=== PATIENT | female | born 1940 | race Caucasian/White ===

== ENCOUNTER 2018-11-28 05:53 | Inpatient (IN) | payer MEDICARE, SELFPAY ==
[2018-11-22 12:18] VITALS: BMI 31.2
[2018-11-28] VITALS (39 sets, daily range): BP systolic 69–167; BP diastolic 31–85; PULSE 67–92; RESP 14–20; TEMP 35.7–36.6; O2SAT 91–100; BMI 31.2
--- NOTE | 2018-11-28 | DI.RAD.S_ITS ---
PROCEDURE: XR HIP W PEL IF DONE LT 2V INDICATIONS: POST OP LEFT TOTAL HIP TECHNIQUE: AP pelvis and lateral view of the left hip acquired. COMPARISON: None. FINDINGS: Bones: Patient is status post left total hip arthroplasty, with hardware components in expected positions. The hip joint appears congruent. The visualized bony structures appear intact. Soft tissues: Overlying postoperative changes are noted. No suspicious soft tissue densities. IMPRESSION: Normal alignment after left total hip arthroplasty with a surgical drain overlying the operative bed. Dictated by: Jude Fernandez M.D. on 11/28/2018 at 14:36 Approved by: Jude Fernandez M.D. on 11/28/2018 at 14:37
--- NOTE | 2018-11-28 06:33 | DI.RAD.S_ITS ---
PROCEDURE: XR PELVIS 1-2V INDICATIONS: post op TECHNIQUE: Intra-operative view of the pelvis and hip acquired. COMPARISON: None. FINDINGS: Bones: Intraoperative devices prior to placement of arthroplasty prostheses are in expected positions. No fractures or suspicious bony lesions. Soft tissues: Overlying surgical retractors are present, along with other intraoperative changes. IMPRESSION: Expected appearance of intraoperative components for left total hip arthroplasty are present, prior to placement of final components. Normal alignment established. Dictated by: Jude Fernandez M.D. on 11/28/2018 at 11:02 Approved by: Jude Fernandez M.D. on 11/28/2018 at 11:02
[2018-11-28] MEDS: CELECOXIB 200 MG CAPSULE PO (06:58)
[2018-11-28] MEDS: PREGABALIN 75 MG CAPSULE PO (06:58)
[2018-11-28] MEDS: ACETAMINOPHEN 325 MG TABLET 975 MG PO ×2 (06:58→21:32)
[2018-11-28] MEDS: LACTATED RINGERS 1,000 ML 42 ML IV ×2 (07:00→11:57)
[2018-11-28] MEDS: VANCOMYCIN 1,000 MG/200 ML PIGGYBACK 200 MG IV (07:04)
--- NOTE | 2018-11-28 07:27 | PM.PREOP ---
Pre-operative Note Interval Note History & Physical reviewed/Exam performed by Physician: Yes Changes to H&P: No
--- NOTE | 2018-11-28 07:37 | P.OP_ITS ---
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 She was treated elsewhere with open reduction internal fixation. 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 Surgeon: Catarina Mccullough Horologist Apprentice: Katherin Gipson Anesthesia Type: General and Spinal Operative Notes Findings: Left femoral neck nonunion, soft bone, defect in the acetabulum, adequate stability evangelical of leg length and offset Closure Type: primary Specimen(s): none sent Prosthetic devices, grafts, tissues, transplants, or devices: Size 10 cemented Synergy femoral component Mccullough [employer] Nephew, 48 mm acetabulum, 48 neutral 32 liner, 32+ 4 femoral head cobalt chrome Applied: drain(s) Estimated Blood Loss (mL): 300 Blood products transfused: none Procedure in detail: The patient was seen in the pre-operative area, where the patient identified the left hip as the operative site and this was marked with my initials. The patient received pre-operative antibiotics and was taken to the operating room and placed on the operative table in the right lateral decubitus position after satisfactory anesthesia. A multimedia authoring specialist out was performed. The left leg was prepared from the ankle to the iliac crest with ChloroPrep in the usual fashion and draped through sterile drapes. The hip was approached through an approximately 20 cm incision centered over the greater trochanter and curving gently posteriorly as it went proximally. This was carried sharply to the fascia jame, which was divided and retracted with a self retaining retractor. The trochanteric bursa was excised with care being taken to avoid the sciatic nerve, which was identified and protected throughout the case. The short external rotators were incised and the capsulomuscular flap was raised and tagged for later repair. The hip was dislocated. Next the patient's previous screws were carefully found I incised the region of the tensor fascia jame over the screw heads dissected down and removed the screw heads without difficulty. Subsequently bone was harvested from the residual femoral neck and the trochanteric region and then packed into the screw holes. The hip was redislocated and the femoral head was removed. There was a nonunion of the fracture site the head was removed without difficulty and then I used a saw to perform an osteotomy along the residual femoral neck. The bone was saved for ultimate bone grafting. Retractors were placed around the femur. The canal was opened with a box cutting osteotome, followed by a T handled reamer and a lateralizing reamer. The canal finer was used. Next the canal was reamed up to a size 10, followed by sequential broaching until there was good stability of the broach in the femur. Retractors were placed to expose the acetabulum. There was an articular cartilage defect in the superior aspect of the acetabulum which was significant. The labrum and central soft tissues were removed. Reaming was performed initially going up in 2 mm increments, then 1 mm increments until good bite was obtained with an odd sized reamer. The cup 1 mm larger than the last reamer was then inserted using the appropriate anteversion guides. A trial neutral liner was placed. The broach was placed in the canal. A trial head and neck were then placed and the hip relocated and checked for leg length and stability. An intraoperative film confirmed the component position and no evidence of fracture. The patient was stable in the position of sleep, of squatting, and could be put through a range of motion with 45 degrees internal rotation without dislocation. At 90 degrees flexion, internal rotation to 70 was possible before dislocation. This was felt to be satisfactory and the appropriate components were opened, and the trials were removed. The acetabular liner was impacted into position. The canal was meticulously irrigated with pulse lavage. A distal cement restrictor was placed. The holes in the lateral femoral cortex were filled with bone graft as was a small portion of bony defect along the posterior medial neck. Cement was carefully mixed and pressurized into the canal. The final stem was then impacted into the prepared femoral canal. The cement was allowed to harden and was meticulously cleaned from the soft tissues. A brief Betadine soak was performed while trialing with head options. The hip was meticulously irrigated with normal saline. Finally the femoral head was impacted onto the stem. The acetabulum was cleared of all material and the hip relocated one final time. The capsulomuscular flap was then repaired to the greater trochanter though an awl hole using the tag sutures. The short external rotators were repaired with a nonabsorbable suture. The fascia over the vastus lateralis was carefully closed with interrupted Vicryl. A deep drain was placed and brought out anteriorly. The fascia jame was closed with Vicryl. The subcutaneous layer was closed with barbed sutures and SteriStrips. An Aquacel Ag dressing was applied and the patient was taken to recovery having tolerated the procedure well. Complications: none Condition: stable Disposition: Acute Care Plan for aftercare: The patient will be maintained on a standard total hip replacement protocol with weight bearing as tolerated and posterior hip precautions. The patient will receive Aspirin and sequential compression devices for DVT prophylaxis. The patient will be discharged home when safe for the home environment.
[2018-11-28] MEDS: CEFAZOLIN 2 GM/100 ML FROZ.PIGGY IV ×2 (08:02→17:00)
--- NOTE | 2018-11-28 08:51 | SUR.OPER ---
Lateral on padded OR bed. Gel axillary roll. Arms secured on padded armboard with pillow supporting top arm. Padded hip positioner braces x4 - anterior and posterior chest and pelvis. Additional gel pad used anterior pelvis. Gel pad under bottom leg from knee to foot and secured with tape over sheet.
[2018-11-28] MEDS: BUPIVACAINE 0.25% W/ EPI 30 ML VIAL 60 ML INJ (09:08)
[2018-11-28] MEDS: SODIUM CHLORIDE IRRIG SOLUTION 250 ML, EPINEPHrine 1 MG IRR (09:09)
[2018-11-28] MEDS: BUPIVACAINE LIPOSOME 266 MG/20 ML VIAL INJ (09:10)
[2018-11-28] MEDS: TRANEXAMIC ACID 1,000 MG VIAL 1000 MG INJ (09:14)
[2018-11-28] MEDS: LACTATED RINGERS 1,000 ML 125 ML IV (12:45)
--- NOTE | 2018-11-28 12:48 | PM.PN.1 ---
Exam Vital Signs (past 8 hours): - 11/28/18 07:06 11/28/18 11:18 11/28/18 11:22 Temperature 97.7 F 97.8 F Pulse Rate 88 76 87 Respiratory Rate 15 16 20 Blood Pressure 167/85 H 78/44 L 69/33 L Pulse Oximetry 100 94 94 11/28/18 11:25 11/28/18 11:30 11/28/18 11:31 Temperature Pulse Rate 67 80 78 Respiratory Rate 16 18 16 Blood Pressure 137/77 142/72 H 104/56 L Pulse Oximetry 94 94 94 11/28/18 11:36 11/28/18 11:41 11/28/18 11:50 Temperature Pulse Rate 83 82 78 Respiratory Rate 16 16 18 Blood Pressure 104/46 L 91/44 L 100/76 Pulse Oximetry 93 91 94 11/28/18 11:56 11/28/18 12:11 11/28/18 12:16 Temperature 97.2 F L Pulse Rate 75 77 76 Respiratory Rate 16 20 14 Blood Pressure 88/40 L 90/45 L 94/44 L Pulse Oximetry 92 95 95 11/28/18 12:20 11/28/18 12:35 Temperature 97.8 F Pulse Rate 76 82 Respiratory Rate 16 14 Blood Pressure 90/44 L 87/47 L Pulse Oximetry 94 93 Oxygen Delivery Method Nasal Cannula Oxygen Flow Rate 2
[2018-11-28] MEDS: SODIUM CHLORIDE 0.9% 1,000 ML 1000 ML IV ×2 (13:10→16:30)
--- NOTE | 2018-11-28 13:19 | PM.CN ---
History of Present Illness Date Patient Seen: 11/28/18 Time Patient Seen: 13:19 Chief complaint: [id number] LEFT TOTAL HIP ARTHROPLASTY Reason for consult: co-management of pulmonary condition Requesting provider: Catarina Mccullough Narrative: 77-year-old female with past medical history of asthma/COPD overlap syndrome with chronic hypoxia on 2 L oxygen therapy at home, ALIREZA on CPAP, hypertension, breast cancer status post radiation, GERD, mild pulmonary hypertension was admitted by Dr. Mccullough, orthopedics, status post left hip replacement. Patient states she has fallen in April 2018 and has broken her femur. She was treated with open reduction internal fixation of her left femur however developed a nonunion and therefore required a total hip arthroplasty today. I have seen patient postoperatively. She is currently feeling well. AO x3. She currently denies any symptoms of fevers, chills, blurry vision, lightheadedness, dizziness, weakness, sore throat, shortness of breath, cough, chest pain, nausea, vomiting, abdominal pain, diarrhea, constipation, symptoms. She is lying comfortably in bed without any acute pain. Postop vitals in the room: Temp 96.8? F, blood pressure 80/46, pulse 83, respiratory rate 16, saturation 96% on 2 L nasal cannula. [facility] Medical History (Updated 11/28/18 @ 13:25 by Guerita Farooq MD) Asthma (Acute) Breast cancer, left (Acute ~2014) Bronchitis (Acute) COPD (chronic obstructive pulmonary disease) (Acute) Easy bruisability (Acute) Former smoker (Acute) GERD (gastroesophageal reflux disease) (Acute) H/O: hysterectomy (Acute) HTN (hypertension) (Acute) Hearing impaired (Acute) Hypoxia (Acute) Left atrial dilatation (Acute) Loss of teeth due to extraction (Acute ~2016) Mild pulmonary hypertension (Acute) Sciatica (Acute) Sleep apnea (Acute) Asthma-COPD overlap syndrome (Chronic) Hip fracture (Chronic ~04/2018) Surgical History (Updated 11/22/18 @ 13:19 by Ysey Loza RN) History of arthroplasty of right knee (Acute ~10/2017) Hx of cholecystectomy (Acute) Status post bilateral cataract extraction (Acute) Family History (Updated 11/28/18 @ 13:26 by Guerita Farooq MD) Father Diabetes mellitus Mother CVA (cerebral vascular accident) Brother Cancer Social History (Updated 11/28/18 @ 13:27 by Guerita Farooq MD) household members: spouse lives independently: Yes Smoking Status: Former smoker alcohol intake: current substance use type: does not use Family History (Updated 11/28/18 @ 13:26 by Guerita Farooq MD) Father Diabetes mellitus Mother CVA (cerebral vascular accident) Brother Cancer Social History (Updated 11/28/18 @ 13:27 by Guerita Farooq MD) household members: spouse lives independently: Yes Smoking Status: Former smoker alcohol intake: current substance use type: does not use Meds Home Medications Medication Instructions Recorded Confirmed Type albuterol sulfate 1 - 2 puff INHALATION Q4-6H PRN 11/22/18 11/28/18 History fluticasone furoate-vilanterol 1 inh INHALATION DAILY 11/22/18 11/28/18 History [Breo Ellipta] indapamide 2.5 mg PO QAM 11/22/18 11/28/18 History lisinopril 20 mg PO QAM 11/22/18 11/28/18 History naproxen sodium [Aleve] 1 - 2 tab PO BID PRN 11/22/18 11/28/18 History omeprazole 80 mg PO QAM 11/22/18 11/28/18 History potassium chloride 8 meq PO Q OTHER DAY 11/22/18 11/28/18 History sertraline 50 mg PO DAILY 11/22/18 11/28/18 History Allergies Allergy/AdvReac Type Severity Reaction Status Date / Time Iodinated Contrast- Oral and Allergy Severe I felt Verified 11/28/18 06:59 IV Dye like I was going to pass out Review of Systems Review of Systems All systems reviewed & are unremarkable except as noted in HPI and below Exam Vital Signs (past 8 hours): - 11/28/18 07:06 11/28/18 11:18 11/28/18 11:22 Temperature 97.7 F 97.8 F Pulse Rate 88 76 87 Respiratory Rate 15 16 20 Blood Pressure 167/85 H 78/44 L 69/33 L Pulse Oximetry 100 94 94 11/28/18 11:25 11/28/18 11:30 11/28/18 11:31 Temperature Pulse Rate 67 80 78 Respiratory Rate 16 18 16 Blood Pressure 137/77 142/72 H 104/56 L Pulse Oximetry 94 94 94 11/28/18 11:36 11/28/18 11:41 11/28/18 11:50 Temperature Pulse Rate 83 82 78 Respiratory Rate 16 16 18 Blood Pressure 104/46 L 91/44 L 100/76 Pulse Oximetry 93 91 94 11/28/18 11:56 11/28/18 12:11 11/28/18 12:16 Temperature 97.2 F L Pulse Rate 75 77 76 Respiratory Rate 16 20 14 Blood Pressure 88/40 L 90/45 L 94/44 L Pulse Oximetry 92 95 95 11/28/18 12:20 11/28/18 12:35 Temperature 97.8 F Pulse Rate 76 82 Respiratory Rate 16 14 Blood Pressure 90/44 L 87/47 L Pulse Oximetry 94 93 Oxygen Delivery Method Nasal Cannula Oxygen Flow Rate 2 Narrative Exam Narrative: General: No acute distress, A/O x3 HEENT: PERRLA and EOMI bilaterally. Normocephalic, atraumatic. Moist mucous membranes. Nasal cannula in place. Neck: Supple, no LAD or JVD CV: Regular rate rhythm, no murmurs Respiratory: Clear to auscultation bilaterally without any wheezing, crackles, or rhonchi GI: Positive bowel sounds in all quadrants, nondistended, non tender. No organomegaly Musculoskeletal: Able to move all extremities Extremities: Left hip dressings in place. No edema. 2+ pulses in all extremities Skin: warm to touch Neuro: No focal deficits Psych: Appropriate mood and behavior Assessment & Plan Assessment & Plan narrative: 77-year-old female with past medical history of asthma/COPD overlap syndrome with chronic hypoxia on 2 L oxygen therapy at home, ALIREZA on CPAP, hypertension, breast cancer status post radiation, GERD, mild pulmonary hypertension was admitted by Dr. Mccullough, orthopedics, status post left hip replacement. Services were consulted for comanagement of patient's pulmonary condition. 1. Left hip fracture, chronic, present on admission -status post left hip arthroplasty -management as per primary team -Tylenol as needed for pain, aspirin 81 mg p.o. b.i.d. and SCD boots for DVT prophylaxis 2. Hypotension, acute -likely due to anesthesia effect however would like to rule out infectious source -blood pressure status post procedure 79/40-> 80/46 -will give patient 1 L NS bolus and monitor in telemetry. May need to start on maintenance IV fluid to maintain the blood pressure -ordered CBC, CMP, lactate, EKG-will follow up -hold home medication regimen indapamide and lisinopril 3. Asthma/COPD overlap syndrome -patient currently is not in exacerbation -no evidence of wheezing on physical exam -as per Pulmonary recommendations, will continue patient's home medication inhaler regimen with Symbicort and albuterol -duo nebs q.4 hours as needed for wheezing with consult to respiratory therapy -incentive spirometry -continue home regimen O2 therapy 2 L nasal cannula 4. Obstructive sleep apnea, chronic, present on admission -resume CPAP therapy 5. Mild pulmonary hypertension chronic, present on admission -likely due to ALIREZA and COPD/asthma overlap -continue to manage the above 6. History of breast cancer, present on admission, an active -status post radiation 7. GERD, chronic, present on admission -continue home regimen omeprazole therapy Dispo: Patient is here s/p L hip replacement. Doing well with exception of hypotension. Recussitating with IVF and ruling out infection. FULL CODE DVT PPx with SCD boots
--- NOTE | 2018-11-28 13:56 | PT.IPTN ---
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) Surgery Performed Operation Date: 11/28/18 07:45 Actual Procedures p Total Hip Arthroplasty Revision(Left) - Catarina Mccullough MD Physical Therapy Treatment Note Notes Pt with BP of 83/52 in supine, not ready to mobilize. Will check back.
[2018-11-28 14:18] LABS: Add Manual Diff / Slide Review NO; Basophils Absolute Auto 0 /uL (0-100); Basophils Percent Auto 0.2 % (0-2); Eosinophils Absolute Auto 0 /uL (0-450); Eosinophils Percent Auto 0.1 % (2-4); Hematocrit 36.6 % (36-46); Lymphocytes Absolute Auto 500 /uL (1100-4500); Lymphocytes Percent Auto 3.5 % (25-40); Mean Corpuscular HGB Conc 32.9 % (30-36); Mean Corpuscular Hemoglobin 26.8 PG (26-34); Mean Corpuscular Volume 81.6 fL (80-100); Monocytes Absolute Auto 200 /uL (0-900); Neutrophils Absolute Auto 13900 /uL (1500-7000); Neutrophils Percent Auto 95.2 % (50-75); Platelet Count 190 X10^3/uL (150-400); Red Blood Cell Count 4.48 X10^6/uL (4.0-5.2); Red Cell Distribution Width 14.6 % (11.6-14.8); White Blood Cell Count 14.7 X10^3/uL (4.5-11.0)
[2018-11-28 14:33] LABS: Lactate (Lactic Acid) 1.4 mmol/L (0.7-2.1)
--- NOTE | 2018-11-28 14:34 | PM.CHAP ---
chaplain hernández. Stopped to visit. Patient had just returned from surgery and had family with her.
[2018-11-28 14:35] LABS: Alanine Aminotransferase 28 IU/L (9-52); Albumin 3.5 g/dL (3.5-5.0); Albumin Globulin Ratio 1.3 (1.0-2.8); Alkaline Phosphatase 69 U/L (38-126); Aspartate Aminotransferase 30 IU/L (14-36); Bilirubin Total 0.4 mg/dL (0.2-1.3); Blood Urea Nitrogen 25 mg/dL (7-17); Calcium 9.2 mg/dL (8.4-10.2); Carbon Dioxide 29 mmol/L (22-32); Chloride 101 mmol/L (98-107); Estimated Glomerular Filt Rate 53.8 mL/min (>60); Globulin 2.6 g/dL (1.7-4.1); Glucose 126 mg/dL (80-110); HEMOLYSIS 23 (0-50); Potassium 4.2 mmol/L (3.4-5.1); Sodium 137 mmol/L (137-145); Total Protein 6.1 g/dL (6.3-8.2)
--- NOTE | 2018-11-28 14:38 | PC.NURSE ---
Day Shift Pt arrived from PACU, BP was in 80's/40's. Inspected pt and she had small BP cuff in place that was not correctly sized, changed to regular BP cuff, BP down to 73/43. Spoke with anesthesiologist and he did want to order anything additional. Dr Farooq was doing assessment and she ordered 1L NS bolus. This was started, BP maintained in 80's, around 1430, BP increased to 90's. Pt asymptomatic, laying flat in bed. Has full sensation of her legs. Bladder scan was 242 ml. will continue to monitor.
[2018-11-28] MEDS: SODIUM CHLORIDE 0.9% 1,000 ML 100 ML IV (19:00)
[2018-11-28] MEDS: SODIUM CHLORIDE 0.9% 500 ML 1000 ML IV (20:51)
[2018-11-28] MEDS: ASPIRIN EC 81 MG TABLET PO (21:33)
[2018-11-28] MEDS: DOCUSATE 100 MG CAPSULE PO (21:33)
--- NOTE | 2018-11-28 21:55 | PM.EVENT ---
Date Patient Seen: 11/28/18 Time Patient Seen: 19:38 Advised at signout that we had been asked to consult on this patient for hypotension. She was initially started on NS at 200 ml/hour. Half hour bp check with no improvement. Patient is alert, oriented and denies feeling light headed. Checked bp again at half hour, sat patient up to 30 degrees, with slight improvement to 82/56. Then she was bolused with NS 500 ml wide open with no improvement. Discussed w/Dr. Farooq and was decided to transfer her to the ICU and place on a norepinephrine drip. Contacted ED for guidance on placing a central line, referred to anesthesia, they referred me to the surgeon. Contacted Dr. Villarreal who graciously agreed to come to the hospital to place a central line. Patient's wound is intact and dry. Hemovac was drained of 15 cc during the past shift. I have ordered a stat CBC to check if she may be having occult blood loss.
--- NOTE | 2018-11-28 21:58 | PC.NURSE ---
Evening Shift Note Pt experiencing continual hypotension w/ SBP from 70's 90's, MAPs between 57-73, pt asymptomatic expressing feeling very tired and sleepy. Pt given several boluses per hospitalist 2L by day shift nurse (one is not documented in AUG) shift and 1.5L in evening shift per AUG. Pt w/ improved SBP of 90's during bolus infusion. This RN suggested administration of Narcan per anesthesia order to possibly reverse potential anesthesia side effects. Hospitalist unsure of potential pain exacerbation. In between NS boluses pt received maintenance NS at 200ml/hr. SBP continued to fluctuate 70-80s and MAP less than 65, blood pressure taken every 30min. At this time the hospitalist Daniel decided to transfer pt to ICU.
[2018-11-28 22:20] LABS: Add Manual Diff / Slide Review NO; Basophils Absolute Auto 0 /uL (0-100); Basophils Percent Auto 0.1 % (0-2); Eosinophils Absolute Auto 0 /uL (0-450); Hematocrit 33.8 % (36-46); Hemoglobin 11.1 g/dL (12.0-16.0); Lymphocytes Absolute Auto 700 /uL (1100-4500); Lymphocytes Percent Auto 4.9 % (25-40); Mean Corpuscular HGB Conc 32.9 % (30-36); Mean Corpuscular Hemoglobin 27.1 PG (26-34); Mean Corpuscular Volume 82.3 fL (80-100); Monocytes Absolute Auto 800 /uL (0-900); Monocytes Percent Auto 5.4 % (3-14); Neutrophils Absolute Auto 13000 /uL (1500-7000); Neutrophils Percent Auto 89.6 % (50-75); Platelet Count 204 X10^3/uL (150-400); Red Blood Cell Count 4.11 X10^6/uL (4.0-5.2); Red Cell Distribution Width 14.7 % (11.6-14.8); White Blood Cell Count 14.5 X10^3/uL (4.5-11.0)
--- NOTE | 2018-11-28 22:53 | PM.EVENT ---
Date Patient Seen: 11/28/18 Time Patient Seen: 22:53 Asked to come in for central line placement for persistently hypotensive patient. On review, 77yo F s/p hip revision earlier today, had spinal anesthesia and has been hypotensive to 70-80s SBP since. She is awake, alert, fully oriented, and comfortable. She has no lightheadedness but is a bit tired. On QHS home O2 for COPD, low levels, and has had no hypoxemia today; no systemic steroids per chart. She is breathing comfortably. On home inhalers and a diuretic which she did not take today. CBC shows a mild leukocytosis and left shift, normal platelets, and Hct from 36%->33% since AM; small volume blood in drain. Anesthesia is also seeing pt and gave small volume phenylephrine through PIV and pt responded quite well. We discussed and pt does not need CVC placement at this time but we will remain available should that change. Would consider BMP, Mg, procal, EKG, CXR, UA, and BLE venous duplex to workup source.
[2018-11-28 23:01] LABS: BUN Creatinine Ratio 27.5 (6-22); Blood Urea Nitrogen 22 mg/dL (7-17); Calcium 8.6 mg/dL (8.4-10.2); Carbon Dioxide 25 mmol/L (22-32); Chloride 104 mmol/L (98-107); Estimated Glomerular Filt Rate > 60.0 mL/min (>60); Glucose 123 mg/dL (80-110); HEMOLYSIS 19 (0-50); Magnesium 1.2 mg/dL (1.6-2.3); Potassium 4.6 mmol/L (3.4-5.1); Sodium 137 mmol/L (137-145)
--- NOTE | 2018-11-28 23:02 | PC.NURSE ---
2240 - Pt to unit from room 209. Pt is alert, oriented and pleasant. Denies pain, denies lightheadedness, denies nausea. Able to move all extremities. ekg monitor demonstrating SR, O2 placed at 2L. Dr. Villarreal, LUCRECIA Sanchez, and Anesthesiologist Dr. Archer at bedside. BP 87/41 with MAP of 58. Dr[address] Archer administered 100mcg of Deejay-synephrine. BP increased to 127/62. Order obtained to initate gtt titrate to a MAP >65. Coordinator notified of need for gtt. Following initial IVP, pt BP trending down. 2253 BP 81/31 (56). NS infusing at 200cc/hr until gtt arrives, then orders to reduce to 100cc/hr.
--- NOTE | 2018-11-28 23:13 | PM.EVENT ---
Date Patient Seen: 11/28/18 Time Patient Seen: 22:[address] Estrada and Dr. Villarreal at the patient's bedside. Dr. Estrada gave the patient phenylepherine IV 100 mcg and the patient's blood pressure mtaty to a systolic of 127, MAP in the 80s. Decision was made to place on a drip starting at 5 mcg/minute and titrate to effect (MAP equal to or greater than 65) in the ICU. Patient appeared to tolerate well. Full labs plus magnesium and calcium were ordered. Her magnesium resulted at 1.2 so I ordered 2 grams IV to replete. Will recheck in the am.
--- NOTE | 2018-11-28 23:20 | P.EN_ITS ---
Date Patient Seen: 11/28/18 Time Patient Seen: 22:[address] Estrada and Dr. Villarreal at the patient's bedside. Dr. Estrada gave the patient phenylepherine IV 100 mcg and the patient's blood pressure matty to a systolic of 127, MAP in the 80s. Decision was made to place on a drip starting at 5 mcg/minute and titrate to effect (MAP equal to or greater than 65) in the ICU. Patient appeared to tolerate well. Full labs plus magnesium and calcium were ordered. Her magnesium resulted at 1.2 so I ordered 2 grams IV to replete. Will recheck in the am.
[2018-11-29] VITALS (35 sets, daily range): BP systolic 79–151; BP diastolic 32–94; PULSE 74–102; RESP 11–96; TEMP 36.6–37.2; O2SAT 84–100
[2018-11-29] MEDS: PHENYLEPHRINE 20,000 MCG in DEXTROSE 5% IN WATER 250 ML 15 ML IV (00:01)
[2018-11-29] MEDS: CEFAZOLIN 2 GM/100 ML FROZ.PIGGY IV (00:05)
[2018-11-29] MEDS: PHENYLEPHRINE 20,000 MCG in DEXTROSE 5% IN WATER 250 ML 18.75 ML IV (01:15)
[2018-11-29] MEDS: MAGNESIUM SULFATE 2 GM/50 ML PIGGYBACK IV (01:30)
[2018-11-29 05:03] LABS: Add Manual Diff / Slide Review NO; Basophils Absolute Auto 0 /uL (0-100); Basophils Percent Auto 0.2 % (0-2); Eosinophils Absolute Auto 100 /uL (0-450); Eosinophils Percent Auto 0.3 % (2-4); Hematocrit 32.9 % (36-46); Hemoglobin 10.7 g/dL (12.0-16.0); Lymphocytes Absolute Auto 1800 /uL (1100-4500); Lymphocytes Percent Auto 9.7 % (25-40); Mean Corpuscular HGB Conc 32.7 % (30-36); Mean Corpuscular Hemoglobin 26.8 PG (26-34); Monocytes Absolute Auto 1600 /uL (0-900); Monocytes Percent Auto 8.5 % (3-14); Neutrophils Absolute Auto 15300 /uL (1500-7000); Neutrophils Percent Auto 81.3 % (50-75); Platelet Count 288 X10^3/uL (150-400); Red Blood Cell Count 4.01 X10^6/uL (4.0-5.2); Red Cell Distribution Width 14.4 % (11.6-14.8); White Blood Cell Count 18.8 X10^3/uL (4.5-11.0)
[2018-11-29 05:08] LABS: BUN Creatinine Ratio 26.3 (6-22); Blood Urea Nitrogen 21 mg/dL (7-17); Calcium 8.4 mg/dL (8.4-10.2); Carbon Dioxide 26 mmol/L (22-32); Chloride 104 mmol/L (98-107); Estimated Glomerular Filt Rate > 60.0 mL/min (>60); Glucose 100 mg/dL (80-110); HEMOLYSIS < 15 (0-50); Potassium 4.1 mmol/L (3.4-5.1); Sodium 135 mmol/L (137-145)
[2018-11-29] MEDS: PANTOPRAZOLE 40 MG TABLET PO (06:36)
[2018-11-29] MEDS: OXYCODONE/ACETAMINOPHEN 5/325 TABLET 1 TAB PO ×2 (06:44→14:58)
--- NOTE | 2018-11-29 06:44 | DI.RAD.S_ITS ---
PROCEDURE: XR CHEST 1V INDICATIONS: Increased White blood cell count, hypotension TECHNIQUE: One view of the chest was acquired. COMPARISON: None. FINDINGS: Surgical changes and devices: None. Lungs and pleura: There is mild bilateral interstitial prominence. No focal infiltrate or consolidation. No pleural effusions or pneumothorax. Mediastinum: Mediastinal contours appear normal. Heart size is normal. Bones and chest wall: No suspicious bony lesions. Overlying soft tissues appear unremarkable. IMPRESSION: Mild bilateral interstitial prominence. No radiographic evidence for pneumonia. Dictated by: Marlon Jasso M.D. on 11/29/2018 at 9:40 Approved by: Marlon Jasso M.D. on 11/29/2018 at 9:41
[2018-11-29 08:00] LABS: RBC Urine None Seen (0-5/HPF)
[2018-11-29 08:01] LABS: Appearance Urine UA CLEAR; Bilirubin Urine UA NEGATIVE (NEGATIVE); Color Urine UA YELLOW; Glucose Urine UA NEGATIVE (Negative); Ketones Urine UA NEGATIVE (NEGATIVE); Leukocyte Esterase Urine UA 1+ (NEGATIVE); Nitrite Urine UA NEGATIVE (Negative); Occult Blood Urine UA NEGATIVE (Negative); Protein Urine UA NEGATIVE (Negative); Urobilinogen Urine UA 0.2 E.U./dL (0.2); pH Urine UA 5.5 (4.5-8.0)
[2018-11-29 08:14] LABS: Procalcitonin < 0.05 ng/mL (<0.5)
[2018-11-29 08:19] LABS: Bacteria Urine Occasional (0-1); Squamous Epithelial Cell Urine 0-1 /HPF (0-5/HPF); WBC Urine 1-5/HPF (0-5/HPF)
[2018-11-29 08:20] LABS: Culture Indicated Urine Specimen Cultured
[2018-11-29] MEDS: SODIUM CHLORIDE 0.9% 1,000 ML 100 ML IV ×2 (08:22→18:28)
[2018-11-29] MEDS: ACETAMINOPHEN 325 MG TABLET 975 MG PO ×2 (09:12→20:23)
[2018-11-29] MEDS: ASPIRIN EC 81 MG TABLET PO ×2 (09:14→20:24)
[2018-11-29] MEDS: SERTRALINE 50 MG TABLET PO (09:17)
[2018-11-29] MEDS: DOCUSATE 100 MG CAPSULE PO ×2 (09:18→20:24)
--- NOTE | 2018-11-29 09:20 | P.PN_ITS ---
Subjective Date Patient Seen: 11/29/18 Time Patient Seen: 09:17 Interval history: Follow-up on hypotension. Patient seen at bedside. She is currently doing well. She had mild left hip pain earlier in the morning and received Percocet with improvement of symptoms. She denies any fevers, chills, nausea, vomiting, diarrhea, constipation, abdominal pain, shortness of breath, chest pain, sore throat, cough, lightheadedness, dizziness. Overnight patient continued to have low blood pressure with map below 65, despite receiving 2.5 L boluses IV fluids. Patient was therefore transferred to ICU. Anesthesia was consulted for possible central line placement, who recommended patient be placed on Deejay-Synephrine drip for better blood pressure control. Patient's blood pressure has improved overnight with phenylephrine drip. Infectious workup including CBC,CMP, lactate, procalcitonin, chest x-ray, UA were all noncontributory with exception of rising WBC (but could be reactive inflammatory process from hip replacement). Patient was also noted to have urinary retention with increasing urine on bladder scans. Orellana catheter was therefore placed. Exam Vital Signs (past 8 hours): - 11/29/18 01:33 11/29/18 01:47 11/29/18 02:08 Temperature Pulse Rate 77 74 Respiratory Rate 13 12 Blood Pressure 89/32 L 91/50 L 92/46 L Pulse Oximetry 97 11/29/18 02:33 11/29/18 02:47 11/29/18 03:32 Temperature Pulse Rate 75 74 Respiratory Rate 11 L 11 L Blood Pressure 80/53 L 80/45 L 102/50 L Pulse Oximetry 95 94 11/29/18 04:10 11/29/18 04:47 11/29/18 05:07 Temperature 97.8 F Pulse Rate 77 77 Respiratory Rate 11 L 19 Blood Pressure 97/38 L 79/45 L 106/59 L Pulse Oximetry 93 100 11/29/18 06:00 11/29/18 07:00 11/29/18 08:00 Temperature 98.3 F Pulse Rate 86 78 84 Respiratory Rate 18 17 24 Blood Pressure 119/56 L 115/56 L 97/52 L Pulse Oximetry 100 100 97 Oxygen Delivery Method CPAP Oxygen Flow Rate 2 Narrative Exam Narrative: General: No acute distress, A/O x3 HEENT: PERRLA and EOMI bilaterally. Normocephalic, atraumatic. Moist mucous membranes. Nasal cannula in place. Neck: Supple, no LAD or JVD CV: Regular rate rhythm, no murmurs Respiratory: Clear to auscultation bilaterally without any wheezing, crackles, or rhonchi GI: Positive bowel sounds in all quadrants, nondistended, non tender. No organomegaly Musculoskeletal: Able to move all extremities Extremities: Left hip dressings in place with drain, draining minimal bloody fluid. No edema. 2+ pulses in all extremities Skin: warm to touch Neuro: No focal deficits Psych: Appropriate mood and behavior Objective Labs Result Diagrams: 11/29/18 04:54 11/29/18 04:54 Labs: Laboratory Results - last 24 hr 11/28/18 11/28/18 11/28/18 13:17 13:17 13:18 WBC 14.7 H RBC 4.48 Hgb 12.0 Hct 36.6 MCV 81.6 MCH 26.8 MCHC 32.9 RDW 14.6 Plt Count 190 Neut % (Auto) 95.2 H Lymph % (Auto) 3.5 L [place] % (Auto) 1.0 L Eos % (Auto) 0.1 L Baso % (Auto) 0.2 Neut # (Auto) 98874 H Lymph # (Auto) 500 L [place] # (Auto) 200 Eos # (Auto) 0 Baso # (Auto) 0 Sodium 137 Potassium 4.2 Chloride 101 Carbon Dioxide 29 BUN 25 H Creatinine 1.00 Estimated GFR 53.8 L BUN/Creatinine Ratio 25.0 H Glucose 126 H Lactate 1.4 Calcium 9.2 Magnesium Total Bilirubin 0.4 AST 30 ALT 28 Alkaline Phosphatase 69 Total Protein 6.1 L Albumin 3.5 Globulin 2.6 Albumin/Globulin Ratio 1.3 Procalcitonin Urine Color Urine Appearance Urine pH Ur Specific [place] Urine Protein Urine Glucose (UA) Urine Ketones Urine Occult Blood Urine Nitrate Urine Bilirubin Urine Urobilinogen Ur Leukocyte Esterase Urine RBC Urine WBC Ur Squamous Epith Cells Urine Bacteria Ur Culture Indicated? Nasal Screen MRSA (PCR) 11/28/18 11/28/18 11/28/18 21:55 22:15 22:15 WBC 14.5 H RBC 4.11 Hgb 11.1 L Hct 33.8 L MCV 82.3 MCH 27.1 MCHC 32.9 RDW 14.7 Plt Count 204 Neut % (Auto) 89.6 H Lymph % (Auto) 4.9 L [place] % (Auto) 5.4 Eos % (Auto) 0.0 L Baso % (Auto) 0.1 Neut # (Auto) 38102 H Lymph # (Auto) 700 L [place] # (Auto) 800 Eos # (Auto) 0 Baso # (Auto) 0 Sodium 137 Potassium 4.6 Chloride 104 Carbon Dioxide 25 BUN 22 H Creatinine 0.80 Estimated GFR > 60.0 BUN/Creatinine Ratio 27.5 H Glucose 123 H Lactate Calcium 8.6 Magnesium 1.2 L Total Bilirubin AST ALT Alkaline Phosphatase Total Protein Albumin Globulin Albumin/Globulin Ratio Procalcitonin Urine Color Urine Appearance Urine pH Ur Specific [place] Urine Protein Urine Glucose (UA) Urine Ketones Urine Occult Blood Urine Nitrate Urine Bilirubin Urine Urobilinogen Ur Leukocyte Esterase Urine RBC Urine WBC Ur Squamous Epith Cells Urine Bacteria Ur Culture Indicated? Nasal Screen MRSA (PCR) Negative for mrsa 11/29/18 11/29/18 11/29/18 04:54 04:54 07:10 WBC 18.8 H RBC 4.01 Hgb 10.7 L Hct 32.9 L MCV 82.0 MCH 26.8 MCHC 32.7 RDW 14.4 Plt Count 288 Neut % (Auto) 81.3 H Lymph % (Auto) 9.7 L [place] % (Auto) 8.5 Eos % (Auto) 0.3 L Baso % (Auto) 0.2 Neut # (Auto) 89714 H Lymph # (Auto) 1800 [place] # (Auto) 1600 H Eos # (Auto) 100 Baso # (Auto) 0 Sodium 135 L Potassium 4.1 Chloride 104 Carbon Dioxide 26 BUN 21 H Creatinine 0.80 Estimated GFR > 60.0 BUN/Creatinine Ratio 26.3 H Glucose 100 Lactate Calcium 8.4 Magnesium Total Bilirubin AST ALT Alkaline Phosphatase Total Protein Albumin Globulin Albumin/Globulin Ratio Procalcitonin Urine Color Yellow Urine Appearance Clear Urine pH 5.5 Ur Specific [place] 1.010 Urine Protein Negative Urine Glucose (UA) Negative Urine Ketones Negative Urine Occult Blood Negative Urine Nitrate Negative Urine Bilirubin Negative Urine Urobilinogen 0.2 Ur Leukocyte Esterase 1+ H Urine RBC None seen Urine WBC 1-5/hpf Ur Squamous Epith Cells 0-1 /hpf Urine Bacteria Occasional (0-1) Ur Culture Indicated? Specimen cultured Nasal Screen MRSA (PCR) 11/29/18 11/29/18 07:20 07:20 WBC RBC Hgb Hct MCV MCH MCHC RDW Plt Count Neut % (Auto) Lymph % (Auto) [place] % (Auto) Eos % (Auto) Baso % (Auto) Neut # (Auto) Lymph # (Auto) [place] # (Auto) Eos # (Auto) Baso # (Auto) Sodium Potassium Chloride Carbon Dioxide BUN Creatinine Estimated GFR BUN/Creatinine Ratio Glucose Lactate 1.0 Calcium Magnesium Total Bilirubin AST ALT Alkaline Phosphatase Total Protein Albumin Globulin Albumin/Globulin Ratio Procalcitonin < 0.05 Urine Color Urine Appearance Urine pH Ur Specific [place] Urine Protein Urine Glucose (UA) Urine Ketones Urine Occult Blood Urine Nitrate Urine Bilirubin Urine Urobilinogen Ur Leukocyte Esterase Urine RBC Urine WBC Ur Squamous Epith Cells Urine Bacteria Ur Culture Indicated? Nasal Screen MRSA (PCR) Assessment & Plan Assessment & Plan narrative: 77-year-old female with past medical history of asthma/COPD overlap syndrome with chronic hypoxia on 2 L oxygen therapy at home, ALIREZA on CPAP, hypertension, breast cancer status post radiation, GERD, mild pulmonary hypertension was admitted by Dr. Mccullough, orthopedics, status post left hip replacement. Services were consulted for comanagement of patient's pulmonary condition. 1. Left hip fracture, chronic, present on admission -status post left hip arthroplasty -management as per primary team -Tylenol and Oxycodone as needed for pain, aspirin 81 mg p.o. b.i.d. and SCD boots for DVT prophylaxis 2. Hypotension, acute, ongoing -likely due to anesthesia effect however still ruling out infection -blood pressure has improved with phenylephrine drip in ICU with MAP >65 -Infectious work up only pertinent for WBC that are on the uprise (but could be just inflammatory response to prior procedure). Lactate and procalc are n egative. UA negative. Blood cx pending. CXR pending -hold home medication regimen indapamide and lisinopril -Continue .9NS @100cc/hr and attempt to titrate off phenylephrine. If not responsive, may need to get central line for continuation of pressors -Will check cortisol level to rule out adrenal insufficiency causing infection. Patient is currently not on PO steroid therapy and no history of being on chronic therapy before 3. Urinary retention, acute -Possibly due to anasthesia effect -Patient continued to retain urine and bladder scans were increasing in bladder amount -placed orellana catheter with good UOP response -continue orellana until BP is stabilized 4. Asthma/COPD overlap syndrome -patient currently is not in exacerbation -no evidence of wheezing on physical exam -Per Pulmonary recommendations, patient's home medication inhaler with Symbicort and albuterol have been restarted. However patient states she did not bring her symbicort and we do not have it at this facility. Therefore swiched patient back to [facility]. -duo nebs q.4 hours as needed for wheezing with consult to respiratory therapy -incentive spirometry -continue home regimen O2 therapy 2 L nasal cannula 4. Obstructive sleep apnea, chronic, present on admission -continue CPAP therapy 5. Mild pulmonary hypertension chronic, present on admission -likely due to ALIREZA and COPD/asthma overlap -continue to manage the above 6. History of breast cancer, present on admission, inactive -status post radiation 7. GERD, chronic, present on admission -continue home regimen omeprazole (pantoprazole while inpatient) therapy Dispo: Patient is here s/p L hip replacement. Doing well with exception of hypotension however responded to phenylephrine. Will titrate off pressors and monitor BP. Pending full infectious work up. FULL CODE DVT PPx with SCD boots Quality VTE Deep Vein Thrombosis/Pulmonary Embolism Present on Admission: No
--- NOTE | 2018-11-29 09:22 | PM.PNPO.1 ---
Subjective Date Patient Seen: 11/29/18 Time Patient Seen: 09:22 Interval history: Hospital day 2, postop day 1 following left hip hardware removal and total hip arthroplasty by Dr. Mccullough. Patient was initially brought to the [facility] floor but had hypotensive problem and was transferred to ICU for further care. She did have central line placed yesterday and is on IV phenylephrine drip for blood pressure. She is being followed by hospitalist for medical issues. She does have COPD. Patient lives in [facility] and is anticipating going to SNF for recovery prior to going home. Patient has not been out of bed yet. She has not had PT. She does have some mild postoperative anemia. WBC up to 18,800. Patient is afebrile. No complaint of significant symptoms or pain. She does have Rudolph catheter in place. Exam Vital Signs (past 8 hours): - 11/29/18 01:33 11/29/18 01:47 11/29/18 02:08 Temperature Pulse Rate 77 74 Respiratory Rate 13 12 Blood Pressure 89/32 L 91/50 L 92/46 L Pulse Oximetry 97 11/29/18 02:33 11/29/18 02:47 11/29/18 03:32 Temperature Pulse Rate 75 74 Respiratory Rate 11 L 11 L Blood Pressure 80/53 L 80/45 L 102/50 L Pulse Oximetry 95 94 11/29/18 04:10 11/29/18 04:47 11/29/18 05:07 Temperature 97.8 F Pulse Rate 77 77 Respiratory Rate 11 L 19 Blood Pressure 97/38 L 79/45 L 106/59 L Pulse Oximetry 93 100 11/29/18 06:00 11/29/18 07:00 11/29/18 08:00 Temperature 98.3 F Pulse Rate 86 78 84 Respiratory Rate 18 17 24 Blood Pressure 119/56 L 115/56 L 97/52 L Pulse Oximetry 100 100 97 11/29/18 09:00 Temperature Pulse Rate 85 Respiratory Rate 24 Blood Pressure 101/53 L Pulse Oximetry 100 Oxygen Delivery Method CPAP Oxygen Flow Rate 2 Narrative Exam Narrative: Alert, oriented in no acute distress sitting in bed eating breakfast. Legs. Aquacel dressing to left hip is dry without drainage or inflammation. Hemovac in place with approximately 20 cc drainage. No calf pain or swelling. Pulses symmetrical. Objective Labs Result Diagrams: 11/29/18 04:54 11/29/18 04:54 Labs: Laboratory Results - last 24 hr 11/28/18 11/28/18 11/28/18 13:17 13:17 13:18 WBC 14.7 H RBC 4.48 Hgb 12.0 Hct 36.6 MCV 81.6 MCH 26.8 MCHC 32.9 RDW 14.6 Plt Count 190 Neut % (Auto) 95.2 H Lymph % (Auto) 3.5 L [place] % (Auto) 1.0 L Eos % (Auto) 0.1 L Baso % (Auto) 0.2 Neut # (Auto) 94926 H Lymph # (Auto) 500 L [place] # (Auto) 200 Eos # (Auto) 0 Baso # (Auto) 0 Sodium 137 Potassium 4.2 Chloride 101 Carbon Dioxide 29 BUN 25 H Creatinine 1.00 Estimated GFR 53.8 L BUN/Creatinine Ratio 25.0 H Glucose 126 H Lactate 1.4 Calcium 9.2 Magnesium Total Bilirubin 0.4 AST 30 ALT 28 Alkaline Phosphatase 69 Total Protein 6.1 L Albumin 3.5 Globulin 2.6 Albumin/Globulin Ratio 1.3 Procalcitonin Urine Color Urine Appearance Urine pH Ur Specific [place] Urine Protein Urine Glucose (UA) Urine Ketones Urine Occult Blood Urine Nitrate Urine Bilirubin Urine Urobilinogen Ur Leukocyte Esterase Urine RBC Urine WBC Ur Squamous Epith Cells Urine Bacteria Ur Culture Indicated? Nasal Screen MRSA (PCR) 11/28/18 11/28/18 11/28/18 21:55 22:15 22:15 WBC 14.5 H RBC 4.11 Hgb 11.1 L Hct 33.8 L MCV 82.3 MCH 27.1 MCHC 32.9 RDW 14.7 Plt Count 204 Neut % (Auto) 89.6 H Lymph % (Auto) 4.9 L [place] % (Auto) 5.4 Eos % (Auto) 0.0 L Baso % (Auto) 0.1 Neut # (Auto) 67370 H Lymph # (Auto) 700 L [place] # (Auto) 800 Eos # (Auto) 0 Baso # (Auto) 0 Sodium 137 Potassium 4.6 Chloride 104 Carbon Dioxide 25 BUN 22 H Creatinine 0.80 Estimated GFR > 60.0 BUN/Creatinine Ratio 27.5 H Glucose 123 H Lactate Calcium 8.6 Magnesium 1.2 L Total Bilirubin AST ALT Alkaline Phosphatase Total Protein Albumin Globulin Albumin/Globulin Ratio Procalcitonin Urine Color Urine Appearance Urine pH Ur Specific [place] Urine Protein Urine Glucose (UA) Urine Ketones Urine Occult Blood Urine Nitrate Urine Bilirubin Urine Urobilinogen Ur Leukocyte Esterase Urine RBC Urine WBC Ur Squamous Epith Cells Urine Bacteria Ur Culture Indicated? Nasal Screen MRSA (PCR) Negative for mrsa 11/29/18 11/29/18 11/29/18 04:54 04:54 07:10 WBC 18.8 H RBC 4.01 Hgb 10.7 L Hct 32.9 L MCV 82.0 MCH 26.8 MCHC 32.7 RDW 14.4 Plt Count 288 Neut % (Auto) 81.3 H Lymph % (Auto) 9.7 L [place] % (Auto) 8.5 Eos % (Auto) 0.3 L Baso % (Auto) 0.2 Neut # (Auto) 94281 H Lymph # (Auto) 1800 [place] # (Auto) 1600 H Eos # (Auto) 100 Baso # (Auto) 0 Sodium 135 L Potassium 4.1 Chloride 104 Carbon Dioxide 26 BUN 21 H Creatinine 0.80 Estimated GFR > 60.0 BUN/Creatinine Ratio 26.3 H Glucose 100 Lactate Calcium 8.4 Magnesium Total Bilirubin AST ALT Alkaline Phosphatase Total Protein Albumin Globulin Albumin/Globulin Ratio Procalcitonin Urine Color Yellow Urine Appearance Clear Urine pH 5.5 Ur Specific [place] 1.010 Urine Protein Negative Urine Glucose (UA) Negative Urine Ketones Negative Urine Occult Blood Negative Urine Nitrate Negative Urine Bilirubin Negative Urine Urobilinogen 0.2 Ur Leukocyte Esterase 1+ H Urine RBC None seen Urine WBC 1-5/hpf Ur Squamous Epith Cells 0-1 /hpf Urine Bacteria Occasional (0-1) Ur Culture Indicated? Specimen cultured Nasal Screen MRSA (PCR) 11/29/18 11/29/18 07:20 07:20 WBC RBC Hgb Hct MCV MCH MCHC RDW Plt Count Neut % (Auto) Lymph % (Auto) [place] % (Auto) Eos % (Auto) Baso % (Auto) Neut # (Auto) Lymph # (Auto) [place] # (Auto) Eos # (Auto) Baso # (Auto) Sodium Potassium Chloride Carbon Dioxide BUN Creatinine Estimated GFR BUN/Creatinine Ratio Glucose Lactate 1.0 Calcium Magnesium Total Bilirubin AST ALT Alkaline Phosphatase Total Protein Albumin Globulin Albumin/Globulin Ratio Procalcitonin < 0.05 Urine Color Urine Appearance Urine pH Ur Specific [place] Urine Protein Urine Glucose (UA) Urine Ketones Urine Occult Blood Urine Nitrate Urine Bilirubin Urine Urobilinogen Ur Leukocyte Esterase Urine RBC Urine WBC Ur Squamous Epith Cells Urine Bacteria Ur Culture Indicated? Nasal Screen MRSA (PCR) Assessment & Plan Post-op Postoperative Procedures Operation Date: 11/28/18 07:45 Actual Procedures Side Surgeon p Total Hip Arthroplasty Revision Left Catarina Mccullough MD Plan: Will DC Hemovac today. Anticipate DC Rudolph catheter when she is more active. Will recheck CBC later today because of leukocytosis. Patient will be followed by hospitalist while in the hospital. Anticipate discharge to SNF after 3 night stay. Quality VTE Deep Vein Thrombosis/Pulmonary Embolism Present on Admission: No
--- NOTE | 2018-11-29 09:26 | P.PN_ITS ---
Subjective Date Patient Seen: 11/29/18 Time Patient Seen: 09:22 Interval history: Hospital day 2, postop day 1 following left hip hardware removal and total hip arthroplasty by Dr. Mccullough. Patient was initially brought to the [facility] floor but had hypotensive problem and was transferred to ICU for further care. She did have central line placed yesterday and is on IV phenylephrine drip for blood pressure. She is being followed by hospitalist for medical issues. She does have COPD. Patient lives in [facility] and is anticipating going to SNF for recovery prior to going home. Patient has not been out of bed yet. She has not had PT. She does have some mild postoperative anemia. WBC up to 18,800. Patient is afebrile. No complaint of significant symptoms or pain. She does have Rudolph catheter in place. Exam Vital Signs (past 8 hours): - 11/29/18 01:33 11/29/18 01:47 11/29/18 02:08 Temperature Pulse Rate 77 74 Respiratory Rate 13 12 Blood Pressure 89/32 L 91/50 L 92/46 L Pulse Oximetry 97 11/29/18 02:33 11/29/18 02:47 11/29/18 03:32 Temperature Pulse Rate 75 74 Respiratory Rate 11 L 11 L Blood Pressure 80/53 L 80/45 L 102/50 L Pulse Oximetry 95 94 11/29/18 04:10 11/29/18 04:47 11/29/18 05:07 Temperature 97.8 F Pulse Rate 77 77 Respiratory Rate 11 L 19 Blood Pressure 97/38 L 79/45 L 106/59 L Pulse Oximetry 93 100 11/29/18 06:00 11/29/18 07:00 11/29/18 08:00 Temperature 98.3 F Pulse Rate 86 78 84 Respiratory Rate 18 17 24 Blood Pressure 119/56 L 115/56 L 97/52 L Pulse Oximetry 100 100 97 11/29/18 09:00 Temperature Pulse Rate 85 Respiratory Rate 24 Blood Pressure 101/53 L Pulse Oximetry 100 Oxygen Delivery Method CPAP Oxygen Flow Rate 2 Narrative Exam Narrative: Alert, oriented in no acute distress sitting in bed eating breakfast. Legs. Aquacel dressing to left hip is dry without drainage or inflammation. Hemovac in place with approximately 20 cc drainage. No calf pain or swelling. Pulses symmetrical. Objective Labs Result Diagrams: 11/29/18 04:54 11/29/18 04:54 Labs: Laboratory Results - last 24 hr 11/28/18 11/28/18 11/28/18 13:17 13:17 13:18 WBC 14.7 H RBC 4.48 Hgb 12.0 Hct 36.6 MCV 81.6 MCH 26.8 MCHC 32.9 RDW 14.6 Plt Count 190 Neut % (Auto) 95.2 H Lymph % (Auto) 3.5 L [place] % (Auto) 1.0 L Eos % (Auto) 0.1 L Baso % (Auto) 0.2 Neut # (Auto) 43945 H Lymph # (Auto) 500 L [place] # (Auto) 200 Eos # (Auto) 0 Baso # (Auto) 0 Sodium 137 Potassium 4.2 Chloride 101 Carbon Dioxide 29 BUN 25 H Creatinine 1.00 Estimated GFR 53.8 L BUN/Creatinine Ratio 25.0 H Glucose 126 H Lactate 1.4 Calcium 9.2 Magnesium Total Bilirubin 0.4 AST 30 ALT 28 Alkaline Phosphatase 69 Total Protein 6.1 L Albumin 3.5 Globulin 2.6 Albumin/Globulin Ratio 1.3 Procalcitonin Urine Color Urine Appearance Urine pH Ur Specific [place] Urine Protein Urine Glucose (UA) Urine Ketones Urine Occult Blood Urine Nitrate Urine Bilirubin Urine Urobilinogen Ur Leukocyte Esterase Urine RBC Urine WBC Ur Squamous Epith Cells Urine Bacteria Ur Culture Indicated? Nasal Screen MRSA (PCR) 11/28/18 11/28/18 11/28/18 21:55 22:15 22:15 WBC 14.5 H RBC 4.11 Hgb 11.1 L Hct 33.8 L MCV 82.3 MCH 27.1 MCHC 32.9 RDW 14.7 Plt Count 204 Neut % (Auto) 89.6 H Lymph % (Auto) 4.9 L [place] % (Auto) 5.4 Eos % (Auto) 0.0 L Baso % (Auto) 0.1 Neut # (Auto) 81852 H Lymph # (Auto) 700 L [place] # (Auto) 800 Eos # (Auto) 0 Baso # (Auto) 0 Sodium 137 Potassium 4.6 Chloride 104 Carbon Dioxide 25 BUN 22 H Creatinine 0.80 Estimated GFR > 60.0 BUN/Creatinine Ratio 27.5 H Glucose 123 H Lactate Calcium 8.6 Magnesium 1.2 L Total Bilirubin AST ALT Alkaline Phosphatase Total Protein Albumin Globulin Albumin/Globulin Ratio Procalcitonin Urine Color Urine Appearance Urine pH Ur Specific [place] Urine Protein Urine Glucose (UA) Urine Ketones Urine Occult Blood Urine Nitrate Urine Bilirubin Urine Urobilinogen Ur Leukocyte Esterase Urine RBC Urine WBC Ur Squamous Epith Cells Urine Bacteria Ur Culture Indicated? Nasal Screen MRSA (PCR) Negative for mrsa 11/29/18 11/29/18 11/29/18 04:54 04:54 07:10 WBC 18.8 H RBC 4.01 Hgb 10.7 L Hct 32.9 L MCV 82.0 MCH 26.8 MCHC 32.7 RDW 14.4 Plt Count 288 Neut % (Auto) 81.3 H Lymph % (Auto) 9.7 L [place] % (Auto) 8.5 Eos % (Auto) 0.3 L Baso % (Auto) 0.2 Neut # (Auto) 66834 H Lymph # (Auto) 1800 [place] # (Auto) 1600 H Eos # (Auto) 100 Baso # (Auto) 0 Sodium 135 L Potassium 4.1 Chloride 104 Carbon Dioxide 26 BUN 21 H Creatinine 0.80 Estimated GFR > 60.0 BUN/Creatinine Ratio 26.3 H Glucose 100 Lactate Calcium 8.4 Magnesium Total Bilirubin AST ALT Alkaline Phosphatase Total Protein Albumin Globulin Albumin/Globulin Ratio Procalcitonin Urine Color Yellow Urine Appearance Clear Urine pH 5.5 Ur Specific [place] 1.010 Urine Protein Negative Urine Glucose (UA) Negative Urine Ketones Negative Urine Occult Blood Negative Urine Nitrate Negative Urine Bilirubin Negative Urine Urobilinogen 0.2 Ur Leukocyte Esterase 1+ H Urine RBC None seen Urine WBC 1-5/hpf Ur Squamous Epith Cells 0-1 /hpf Urine Bacteria Occasional (0-1) Ur Culture Indicated? Specimen cultured Nasal Screen MRSA (PCR) 11/29/18 11/29/18 07:20 07:20 WBC RBC Hgb Hct MCV MCH MCHC RDW Plt Count Neut % (Auto) Lymph % (Auto) [place] % (Auto) Eos % (Auto) Baso % (Auto) Neut # (Auto) Lymph # (Auto) [place] # (Auto) Eos # (Auto) Baso # (Auto) Sodium Potassium Chloride Carbon Dioxide BUN Creatinine Estimated GFR BUN/Creatinine Ratio Glucose Lactate 1.0 Calcium Magnesium Total Bilirubin AST ALT Alkaline Phosphatase Total Protein Albumin Globulin Albumin/Globulin Ratio Procalcitonin < 0.05 Urine Color Urine Appearance Urine pH Ur Specific [place] Urine Protein Urine Glucose (UA) Urine Ketones Urine Occult Blood Urine Nitrate Urine Bilirubin Urine Urobilinogen Ur Leukocyte Esterase Urine RBC Urine WBC Ur Squamous Epith Cells Urine Bacteria Ur Culture Indicated? Nasal Screen MRSA (PCR) Assessment & Plan Post-op Postoperative Procedures Operation Date: 11/28/18 07:45 Actual Procedures Side Surgeon p Total Hip Arthroplasty Revision Left Catarina Mccullough MD Plan: Will DC Hemovac today. Anticipate DC Rudolph catheter when she is more active. Will recheck CBC later today because of leukocytosis. Patient will be followed by hospitalist while in the hospital. Anticipate discharge to SNF after 3 night stay. Quality VTE Deep Vein Thrombosis/Pulmonary Embolism Present on Admission: No
[2018-11-29] MEDS: BREO 1 EACH INH (09:31)
[2018-11-29] MEDS: PHENYLEPHRINE 20,000 MCG in DEXTROSE 5% IN WATER 250 ML 26.25 ML IV (10:09)
[2018-11-29 10:41] LABS: Cortisol AM (Before 10AM) 1.68 ug/dL (4.46-22.7)
--- NOTE | 2018-11-29 12:05 | CM.DANOTE ---
DCP/Assessment: Reviewed chart. Patient is a 77yr old female [facility] left ANGELICA performed on 11-28-[address] Stewart. Primary payor is 1)Medicare 2)[facility]. No PCP listed. Met with patient and family at bedside explained CM/SW role. Patient alert and oriented and reports that she resides in [place], [place]. with her spouse. Patient's DPOA is daughter/Ne. Patient reports that she chose to come to [facility] for surgery on her hip because her nephew works for [employer]. Also, patient reports having previous bad experience in [place] with previous orthopedic surgery. Spoke with Ortho/PA Jesus he anticipates that patient will need SNF when stable. Patient unable to work with therapy today due to low blood pressure. Patient hopes to be able to go to SNF for short stay prior to returning to her home in [place]. Provided patient with contracted SNF list and first choice is [facility]. DINING ROOM HOSTESS placed call to November with admit at [facility] and they will review for admit. Patient not eligible for transfer until 12-01-18. MD and Ortho team aware. Notified patient that CM team would continue to follow for d/c planning coordination. Patient appreciative. P: [facility] reviewing for admit. HARJINDER Jenkins Discharge Planning/Care Management CM Discharge Assessment Start: 11/29/18 12:02 Freq: Status: Active Protocol: Document 11/29/18 12:02 [facility] (Rec: 11/29/18 12:04 [facility] [id number]) Discharge Planning Assessment Assigned Dental Instrument Maker HARJINDER Jenkins Contact Information Ne Osorio (daughter) [phone] Advance Directives? Yes Advance Directives on File Yes History Provided By Patient Family Member Medical Record Prior Living Arrangements House Household Members spouse Independent with ADL's Yes Is patient alert and oriented? Yes Caregiver for Another No Patient/Family Preference [facility] Facility Barriers to Discharge No Referrals Initiated Prison If patient plan is SNF: Has PASSR been No completed? Medicare Choice List Provided Yes SNF/HH Preference [facility] Contact Name/Phone November [phone] Has Agency SNF been contacted Yes Whiteboard Updated in Patient Room with Yes name and ext. # of Dental Instrument Maker Review Status In Process Next Review Type Continued Stay Review Pre-Anesthesia Assessment Start: 06/18/19 12:18 Freq: Status: Complete Protocol: Document 11/22/18 12:18 [facility] (Rec: 11/22/18 13:54 CAB [id number]) Pre-Anesthesia Assessment Patient Information Reviewed Via Phone Assessment Assessment Completed With Patient Diagnostic Results BMP/CMP CBC EKG Urinalysis Comment A1c. Outside labs/EKG scanned to record Primary Care Provider Hector Seen Specialist in Last 12 Months Yes Specialist Seen Orthopedist Valve Grinder Comment Valve Grinder visit 11/15/18, PFT 05/10/15 scanned to record Primary Language Upper Sorbian Cloud Systems Architect Required No Height 157.48 cm Weight 77.564 kg Body Mass Index (BMI) 31.2 Hearing Ability Hard of Hearing Use of Hearing Aid Visual Assist Glasses Dentition Type Full- Upper & Lower Barriers to Learning None Auditory Other Aids Yes: CPAP, 02 Hx Anesthesia Reactions No Hx Family Anesthesia Reaction No Hx Malignant Hyperthermia No Hx Blood Transfusions No Anesthesia Review Requested Yes: Surgeon requested re: Home 02 Grey Roll Worker No alcohol intake current alcohol intake frequency holidays/special occasions only Smoking Status Former smoker Smoking packs per day 1.5 how long ago did patient quit smoking Quit 1958 Substance Use Type does not use Pain Present Pain Reported Musculoskeletal Symptoms Abnormal Gait Difficulty Walking Joint Pain Muscle Cramps History of Falling (Recent or History of Yes ) Patient is completely paralyzed or No completely immobile Prosthesis or Orthotic Device Front Wheel Walker Wheelchair Mental Status Oriented to own ability Is patient on oxygen? Yes Does patient have AVILA/SOB Yes: AVILA, breathing at baseline Hx Sleep Apnea Yes CPAP/BIPAP use prescribed and used routinely Will Bring CPAP/BIPAP DOS Yes Comment 2-3L02 w/activity, sleep Currently Taking a Beta Neo No Can You Climb a Flight of Stairs Without No SOB Hx Chest Pain No Hx SOB Yes: AVILA, breathing at baseline, hx COPD Hx Syncope or Dizziness No Anti-Coagulant Therapy No Has a Ruffler No Cardiac Testing Yes: ECHO 11/01/18 EF 60-65% Hx Pacemaker/ICD No Pacemaker Rep Required? No Cardiac Clearance Received No Diet Type At Home Regular dysphagia No Bladder Pattern Frequency Incontinent, Stress Urgency Urinary Catheter Present No Hx Urinary Self Catheterization No Diabetes No HgbA1C 5.2 Date 11/18/18 Patient No Lactating No Hx Drug Resistant Organism No Presence of External or Internal Medical Yes: CPAP, 02, Left hip, right Devices knee prosthesis Have you traveled outside the [place] in the last 30 days? Marital Status Lives With spouse Prior Living Arrangements House Number of Floors (Floors) One Floor Support System Child/Children Spouse Does the Patient Have Assistance After Yes Surgery Patient Discharge Plan Description Return Home Comment Pt advised 3 day length of stay per surgeon's office Feels Safe in Current Environment Yes Been Physically Hurt or Threatened By a No Person in Current Environment Do you have thoughts of harming yourself None or others? Are you currently considering suicide? No Do you have a plan to hurt yourself or No Plan others? Do You Have Any Spiritual Beliefs That No May Affect Your HC Choices? Do You Have Any Cultural Practices That No May Affect Your HC Choices? Spiritual Referral In-House Violin Repairer Comment Mosque Who Can We Speak to About Patient's Care Family, friends Identifying Code for Release of Patient Declines to issue Information Health Care Proxy/Next of Kin William () Ne ( daughter) Health Care Proxy Phone Number William: [phone] [facility]: [phone] Emergency Contact Name William () Ne ( daughter) Emergency Contact Phone Number William: [phone] Ne: [phone] Advance Directives? Yes Advance Directives on File No Requested Patient Bring Advanced Yes Directives DOS Power of Special Needs Child Caregiver Yes Power of Special Needs Child Caregiver Name William () Ne ( daughter) Power of Special Needs Child Caregiver Phone Number William: [phone] [facility]: [phone] PAC Instructions Do not shave/clip surgical site Durable medical equipment Medications to take/avoid Nasal antibiotic No ETOH/petroleum product on skin DOS NPO Post-op transportation Pre-surgical wash Sensory aids Sturdy shoes/comfortable clothes Do not bring valuables and remove jewelry
--- NOTE | 2018-11-29 12:30 | PT.IIE ---
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) Surgery Performed Operation Date: 11/28/18 07:45 Actual Procedures p Total Hip Arthroplasty Revision(Left) - Catarina Mccullough MD Surgical History (Last Updated 11/22/18 @ 13:19 by Yesy Loza RN) History of arthroplasty of right knee (Acute ~10/2017) Hx of cholecystectomy (Acute) Status post bilateral cataract extraction (Acute) Medical History (Last Updated 11/28/18 @ 13:25 by Guerita Farooq MD) Asthma (Acute) Breast cancer, left (Acute ~2014) Bronchitis (Acute) COPD (chronic obstructive pulmonary disease) (Acute) Easy bruisability (Acute) Former smoker (Acute) GERD (gastroesophageal reflux disease) (Acute) H/O: hysterectomy (Acute) HTN (hypertension) (Acute) Hearing impaired (Acute) Hypoxia (Acute) Left atrial dilatation (Acute) Loss of teeth due to extraction (Acute ~2016) Mild pulmonary hypertension (Acute) Sciatica (Acute) Sleep apnea (Acute) Asthma-COPD overlap syndrome (Chronic) Hip fracture (Chronic ~04/2018) Physical Therapy Inpatient Evaluation/Re-Eval M1 PT/OT-IP Prior Functional Status Start: 11/28/18 13:55 Freq: NEEDED Status: Active Protocol: Document 11/29/18 12:30 AB (Rec: 11/29/18 14:42 AB [id number]) Medical Review Prior Functional Status Medical History Reviewed Yes Communication able to make needs known Mobility and Gait prior to surgery last april 2018, pt was independent with all mobilities and ambulation without AD; pt went to SNF afterwards and went home may 2018. since then, pt is modified independent with all mobilities and ambulation using FWW Social History Household Members spouse Living Arrangements House Number of Floors (Floors) One Floor Number of Stairs To Enter/Railing? ramp to enter Home Environment Standard Height Toilet Walk in Shower Home Equipment Front Wheel Walker Raised Toilet Seat Without Armrests Shower Seat with Backrest Hand Held Shower Grab Bars Near Toilet Grab Bars In Shower Additional Social History Comment pt has a bidet pt has an adjustable bed but has been sleeping on a manual recliner M2 PT-IP Current Condition Start: 11/28/18 13:55 Freq: NEEDED Status: Active Protocol: Document 11/29/18 12:30 AB (Rec: 11/29/18 14:42 AB [id number]) Physical Therapy Current Condition Current Condition Evaluation Date 11/29/18 Treatment Diagnosis s/p L ANGELICA posterior approach; difficulty in walking Onset Date 11/28/18 Precautions Posterior Hip Precautions No Hip Flexion > 90 degrees No Hip Internal Rotation No Hip Adduction Weight Bearing Status Weight Bearing Status Weight Bear as Tolerated M3 PT-IP Subjective Start: 11/28/18 13:55 Freq: NEEDED Status: Active Protocol: Document 11/29/18 12:30 AB (Rec: 11/29/18 14:42 AB [id number]) Subjective Physical Therapy Visit Type Type Initial Evaluation Visit Start Time 12:30 Visit Stop Time 13:20 Total Visit Minutes 50 Number of OFFICE ADMIN Visits 0 Physical Therapy Visit Comments Patient Comments pt agreeable to do PT Therapy Pain Assessment Pain When Pain Assessed At Rest Pain Present Pain Present Pain Reported Location left leg Intensity 6 Scale Used Numeric (1 - 10) Pain Management Techniques Re-positioning Timing of Activity with Medications M4 PT-IP Mobility and Gait Start: 11/28/18 13:55 Freq: NEEDED Status: Active Protocol: Document 11/29/18 12:30 AB (Rec: 11/29/18 14:42 AB [id number]) PT-Bed Mobility Assessment Supine to Sit Supine to Sit Maximum Assistance 1 Person Assistance Head of Bed Elevated Bedrails Sit to Supine Sit to Supine Maximum Assistance 2 Person Assistance Bedrails Scooting Scooting to Edge of Bed Maximum Assistance Scooting Up and Down in Bed Maximum Assistance PT-Transfer Assessment Sit to and From Stand Sit to and from Stand Maximum Assistance 1 Person Assistance Use of Upper Extremities Equipment Transfer Assistive Device Gait Belt Front Wheeled Walker Orthotic/Prosthetic Devices or Brace: No Comments Mobility Comments nurse stated that pt will be getting a PICC line insertion and will have to get back to bed after PT session. pt sat on EOB SBA to maintain sitting . completed sit to stand max A and cues for hip precautions . pt was able to maintain standing mod to max A using FWW for support. pt took ~ 2 steps forward/backwards and side stepping towards HOB ~ 3 steps. BP in supine prior to mobility : 101/52 BP sitting on EOB: 144/76 BP in standin/77 BP supine after mobility: 164/ 79 after 2 min of rest: 154/ 74 O2 sat at room air 2L/min: 96% decreased to 84% with mobility and nurse stated that O2 can be increasred to 3-4L/ min; O2 sat at 3L/min with mobility: 88 to 94% Gait Assessment Gait Gait Assistance Required: Moderate Assistance Maximum Assistance Distance (Feet) 3 Able to Maintain Weight Bearing Status Yes During Gait Assistive Devices Assistive Device Gait Belt Front Wheeled Walker Orthotic/Prosthetic Devices or Brace: No Gait Deviations General Gait Pattern Antalgic Decreased Stride Length Decreased Feet Clearance Factors Limiting Gait Function Factors Limiting Gait Function Decreased Activity Tolerance Decreased Strength Limited Range of Motion Pain Poor Balance Poor Safety Awareness PT-Balance Assessment Sitting Balance and Reactions Static Sitting Balance Ability Good Dynamic Sitting Balance Ability Good Standing Balance and Reactions Static Standing Balance Ability Fair Dynamic Standing Balance Ability Fair Device Used FWW M5 PT-IP Objective Assessments Start: 11/28/18 13:55 Freq: NEEDED Status: Active Protocol: Document 11/29/18 12:30 AB (Rec: 11/29/18 14:42 AB [id number]) Orientation Orientation/Cognition Level of Alertness Alert Orientation Name Place Situation Language Function Ability Hard of Hearing Safety Awareness Decreased Safety Awareness Memory Description Short Term Impaired Strength Lower Extremity Strength Assessment Bilaterally Impaired Comments Strength Comments LLE: 3+/5 RLE 4-/5 Coordination Assessment Gross Coordination Gross Coordination WNL Sensation Assessment Sensation Gross Sensation WNL Muscle Tone Muscle Tone WNL Yes M6 PT-IP Treatment Start: 11/28/18 13:55 Freq: NEEDED Status: Active Protocol: Document 11/29/18 12:30 AB (Rec: 11/29/18 14:42 AB [id number]) Physical Therapy Treatment Education Education Provided Precautions Weight Bearing Status Post-Op Packet Safety M7 PT-IP Assessment and Plan Start: 11/28/18 13:55 Freq: NEEDED Status: Active Protocol: Document 11/29/18 12:30 AB (Rec: 11/29/18 14:42 AB [id number]) PT Summary Assessment and Plan Potential Rehabilitation Potential Good Status of Condition at Evaluation Evolving Summary Impairments Pain ROM Strength Balance Coordination Sensation Tone Cognition Bed Mobility Transfers Gait Activity Tolerance Assessment Summary pt requiring mod to max A with mobility and has decrease activity tolerance with decrease in O2 sat with mobility. pt will benefit from SNF rehab to improve strength and function. Goals Bed Mobility Goal Standby Assistance Transfer Goal Standby Assistance Front Wheeled Walker Gait Goal Standby Assistance Front Wheel Walker Gait Distance 150 Days to Meet Goals 5 Frequency of Treatment Frequency Of Treatment Twice a Day Treatment Plan Physical Therapy Treatment Plan Bed Mobility Training Transfer Training Gait Training Therapeutic Exercise Balance Retraining Post Op Education Discharge Planning Hot or Cold Pack Neuromuscular Re-ed Coordination Retraining Manual Therapy Recommendations To Nursing Amount of Assist Needed 1 Person Assist Discharge Recommendations PT Discharge Recommendations SNF Rehab
[2018-11-29 13:39] LABS: Magnesium 1.9 mg/dL (1.6-2.3)
--- NOTE | 2018-11-29 13:57 | DI.RAD.S_ITS ---
PROCEDURE: XR CHEST FOR PICC 1V INDICATIONS: picc line verify COMPARISON: [facility], CR, XR CHEST 1V, 11/29/2018, 6:51. FINDINGS: PICC was placed by the intravenous therapy team from the right side. Fluoroscopic spot film demonstrates tip of PICC in the junction of the right subclavian vein and superior vena cava.. IMPRESSION: Tip of PICC lies within the junction of the right subclavian vein and superior vena cava. Dictated by: Janessa Gaona MD, PhD on 11/29/2018 at 14:30 Approved by: Janessa Gaona MD, PhD on 11/29/2018 at 14:32
[2018-11-29] MEDS: ALBUTEROL/IPRATROPIUM 3 ML AMPUL INH ×2 (15:26→20:54)
--- NOTE | 2018-11-29 15:38 | PC.NURSE ---
Day Shift Note Alert and oriented x3. Oxygen sats 95-98% on 2L NC per home oxygen regimen. Lungs clear but decreased bilaterally. Phenylephrine gtt infusing at 35 mcg/min on AM assessment with MAP in the 64-68 range (goal > 65). Denies dizziness. Reports pain controlled on oxycodone and tylenol. CMS intact to BLEs. H/V discontinued at 1300 without issue and dressing applied. Aquacel dressing to left hip is C/D/I. Laboratory unable to draw labs due to limited access/unsuccessful attempts. DI nurse unable to place peripheral. Dr. Farooq updated and order received for PICC line, Dr. Farooq also updated to late lab draws (blood cultures, cortisol levels) due to lack of access and that these would be obtained via the PICC when placed. PICC placed about 1400. Rudolph catheter in place and draining clear yellow urine. Call light within reach, using appropriately to make needs known.
[2018-11-29] MEDS: COSYNTROPIN 0.25 MG VIAL IV (16:19)
[2018-11-29 17:12] LABS: Add Manual Diff / Slide Review NO; Basophils Absolute Auto 0 /uL (0-100); Basophils Percent Auto 0.3 % (0-2); Eosinophils Absolute Auto 200 /uL (0-450); Eosinophils Percent Auto 1.8 % (2-4); Hematocrit 28.4 % (36-46); Hemoglobin 9.6 g/dL (12.0-16.0); Lymphocytes Absolute Auto 1000 /uL (1100-4500); Lymphocytes Percent Auto 9.4 % (25-40); Mean Corpuscular Hemoglobin 27.5 PG (26-34); Monocytes Absolute Auto 700 /uL (0-900); Neutrophils Absolute Auto 8300 /uL (1500-7000); Neutrophils Percent Auto 81.5 % (50-75); Platelet Count 156 X10^3/uL (150-400); Red Blood Cell Count 3.51 X10^6/uL (4.0-5.2); Red Cell Distribution Width 14.6 % (11.6-14.8); White Blood Cell Count 10.2 X10^3/uL (4.5-11.0)
[2018-11-29] MEDS: HYDROCORTISONE 100 MG/2 ML VIAL IV (18:09)
[2018-11-29 18:12] LABS: Cortisol 30 MIN Post Stim. 22.7 ug/dL
[2018-11-29 18:49] LABS: Cortisol 60 MIN Post Stim. 27.7 ug/dL
[2018-11-29 18:50] LABS: Cortisol Basline for Stim. 12.4 ug/dL
--- NOTE | 2018-11-29 19:27 | PC.NURSE ---
Addendum entered by Jolie Ramirez R.N. 11/29/18 21:36: 2120 - CORPORATE DEVELOPMENT MANAGERDaniel, Notified of increased SOB, discussed O2 needs, Non-productive cough. Crackles to bilateral bases and wheezing. Breathing tx given. Rudolph with 1400cc out. Gtt continues at 10mcg/min, BP 136/78 Map 98. Original Note: 1600 - Pt BP 151/94 (106) Deejay-synephrine infusing at 30mcg/min. Tirated down to 20mcg/min. Pt alert and oriented sitting up in bed. Family at bedside. 1630 - BP 116/62 (86). Deejay gtt titrated to off. Monitor. 1700 - Lab draw for ACTH 30 minute follow up. 1730 - Lab draw for ACTH 60 minute follow up. Difficulty draw from PICC line. Lab aware the PICC line may not be suitable for future draws. 1800 - Dr. Farooq at bedside, BP 91/46 (53) verbal order to resume Deejay gtt. Gtt initiated at 10mcg/min. 2014 - Pt repositioned. Very SOB with minimal activity. Dry non-productive cough, Sats decreased to 84% on 2L during activity. Increasing to 94% at rest, audible wheezing. Breathing tx given. Pt reports pain to left hip 7 of 10 po meds given. Gtt continues at 10mcg/min. 2100 - BP 136/78(98).Monitor.
[2018-11-29] MEDS: OXYCODONE IR 5 MG TABLET PO (20:23)
[2018-11-29] MEDS: FUROSEMIDE 20 MG/2 ML VIAL IV (22:07)
[2018-11-30] VITALS (31 sets, daily range): BP systolic 82–170; BP diastolic 50–124; PULSE 81–111; RESP 13–28; TEMP 35.8–37.1; O2SAT 90–100
[2018-11-30] MEDS: HYDROCORTISONE 100 MG/2 ML VIAL 25 MG IV ×4 (00:37→21:20)
[2018-11-30] MEDS: OXYCODONE/ACETAMINOPHEN 5/325 TABLET 1 TAB PO (01:58)
[2018-11-30] MEDS: SODIUM CHLORIDE 0.9% 1,000 ML 100 ML IV (04:14)
[2018-11-30 05:41] LABS: BUN Creatinine Ratio 21.4 (6-22); Blood Urea Nitrogen 15 mg/dL (7-17); Calcium 8.4 mg/dL (8.4-10.2); Carbon Dioxide 29 mmol/L (22-32); Chloride 105 mmol/L (98-107); Estimated Glomerular Filt Rate > 60.0 mL/min (>60); Glucose 124 mg/dL (80-110); HEMOLYSIS < 15 (0-50); Potassium 3.6 mmol/L (3.4-5.1); Sodium 138 mmol/L (137-145)
[2018-11-30 05:44] LABS: Add Manual Diff / Slide Review NO; Basophils Absolute Auto 0 /uL (0-100); Basophils Percent Auto 0.2 % (0-2); Eosinophils Absolute Auto 0 /uL (0-450); Eosinophils Percent Auto 0.2 % (2-4); Hemoglobin 9.3 g/dL (12.0-16.0); Lymphocytes Absolute Auto 600 /uL (1100-4500); Lymphocytes Percent Auto 5.3 % (25-40); Mean Corpuscular HGB Conc 33.1 % (30-36); Mean Corpuscular Hemoglobin 26.8 PG (26-34); Mean Corpuscular Volume 80.9 fL (80-100); Monocytes Absolute Auto 500 /uL (0-900); Monocytes Percent Auto 4.2 % (3-14); Neutrophils Absolute Auto 10600 /uL (1500-7000); Neutrophils Percent Auto 90.1 % (50-75); Platelet Count 150 X10^3/uL (150-400); Red Blood Cell Count 3.46 X10^6/uL (4.0-5.2); Red Cell Distribution Width 14.6 % (11.6-14.8); White Blood Cell Count 11.8 X10^3/uL (4.5-11.0)
[2018-11-30 05:58] LABS: Phosphorous 3.1 mg/dL (2.8-4.1)
[2018-11-30 06:20] LABS: Thyroid Stimulating Hormone 0.76 uIU/mL (0.47-4.68)
--- NOTE | 2018-11-30 06:55 | PC.NURSE ---
NOC Shift: POD #2 Left hip replacement w/hypotension issues post op. Deejay gtt off @0130 SBP >110 throughout shift, MAP >80 throughout shift. NSR on tele. Remains on IVF's, taking po fluids. Denies pain, medicated only once for discomfort. Left hip dsg GELY. Rudolph. On homoe CPAP unit throughout night, BS diminished and clear following evening dose of Lasix. Started on cortisone after cortisol challenge. Needs to be encouraged OOB, and work with PT today. ICU status continues.
[2018-11-30] MEDS: PANTOPRAZOLE 40 MG TABLET PO (07:07)
[2018-11-30] MEDS: ALBUTEROL/IPRATROPIUM 3 ML AMPUL INH ×2 (07:27→20:49)
--- NOTE | 2018-11-30 08:00 | DI.RAD.S_ITS ---
PROCEDURE: XR CHEST 1V INDICATIONS: SOB TECHNIQUE: One view of the chest was acquired. COMPARISON: [facility], CR, XR CHEST FOR PICC 1V, 11/29/2018, 14:02. FINDINGS: Surgical changes and devices: Right-sided PICC line is present whose tip terminates in the SVC, stable. Lungs and pleura: Mild interstitial thickening without acute consolidation. No pleural effusions or pneumothorax. Mediastinum: Mediastinal contours appear normal. Heart size is normal. Bones and chest wall: No suspicious bony lesions. Healed right seventh rib arc fracture. Overlying soft tissues appear unremarkable. IMPRESSION: 1. Right PICC line is stable. 2. Mild interstitial prominence, chronic. Dictated by: Paula Adams M.D. on 11/30/2018 at 9:27 Approved by: Paula Adams M.D. on 11/30/2018 at 9:29
[2018-11-30] MEDS: FUROSEMIDE 40 MG/4 ML VIAL IV (08:15)
[2018-11-30] MEDS: POTASSIUM CHLORIDE 20 MEQ TAB 40 MEQ PO (08:26)
[2018-11-30] MEDS: ACETAMINOPHEN 325 MG TABLET 975 MG PO ×3 (08:26→19:56)
[2018-11-30] MEDS: ASPIRIN EC 81 MG TABLET PO ×2 (08:27→19:58)
[2018-11-30] MEDS: DOCUSATE 100 MG CAPSULE PO ×2 (08:28→19:58)
[2018-11-30] MEDS: OXYCODONE IR 5 MG TABLET PO ×3 (08:28→17:32)
[2018-11-30] MEDS: SERTRALINE 50 MG TABLET PO (08:28)
[2018-11-30] MEDS: BREO 1 EACH INH (09:51)
--- NOTE | 2018-11-30 10:12 | P.PN_ITS ---
Subjective Date Patient Seen: 11/30/18 Time Patient Seen: 10:11 Interval history: Patient is POD #2 s/p left total hip arthroplasty with Dr. Mccullough. She had blood pressure control problems yesterday and was placed on a phenylephrine drip which has since been discontinued. 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 Her pain has been controlled. She has not mobilized yet to this point due to her comorbid problems. Orellana catheter in place. Exam Vital Signs (past 8 hours): - 11/30/18 02:15 11/30/18 03:00 11/30/18 04:00 Temperature 97.4 F L Pulse Rate 87 81 Respiratory Rate 13 14 Blood Pressure 136/72 125/75 Pulse Oximetry 98 91 96 11/30/18 04:07 11/30/18 05:00 11/30/18 06:00 Temperature Pulse Rate 86 83 Respiratory Rate 18 15 Blood Pressure 129/64 112/68 Pulse Oximetry 92 98 96 11/30/18 07:00 11/30/18 08:00 11/30/18 09:30 Temperature 98.7 F Pulse Rate 96 H 111 H 107 H Respiratory Rate 24 27 H 28 H Blood Pressure 128/87 167/106 H 170/124 H Pulse Oximetry 96 97 99 11/30/18 09:48 Temperature Pulse Rate 109 H Respiratory Rate 27 H Blood Pressure 130/77 Pulse Oximetry 93 Oxygen Delivery Method Nasal Cannula Oxygen Flow Rate 2 Narrative Exam Narrative: Pleasant 77 year old female resting in bed. Alert and oriented in no acute distress. Intermittent coughing during exam. Dressing in place over left hip is clean, dry, and intact. Intact sensation to light touch in distal extremity. Calves are soft, compressible bilaterally. Objective Labs Result Diagrams: 11/30/18 05:20 11/30/18 05:20 Labs: Laboratory Results - last 24 hr 11/29/18 11/29/18 11/29/18 07:20 07:20 17:00 WBC 10.2 RBC 3.51 L Hgb 9.6 L Hct 28.4 L MCV 81.0 MCH 27.5 MCHC 34.0 RDW 14.6 Plt Count 156 Neut % (Auto) 81.5 H Lymph % (Auto) 9.4 L [place] % (Auto) 7.0 Eos % (Auto) 1.8 L Baso % (Auto) 0.3 Neut # (Auto) 8300 H Lymph # (Auto) 1000 L [place] # (Auto) 700 Eos # (Auto) 200 Baso # (Auto) 0 Sodium Potassium Chloride Carbon Dioxide BUN Creatinine Estimated GFR BUN/Creatinine Ratio Glucose Calcium Phosphorus Magnesium 1.9 TSH Cortisol AM Sample 1.68 L 11/30/18 11/30/18 11/30/18 05:20 05:20 05:20 WBC 11.8 H RBC 3.46 L Hgb 9.3 L Hct 28.0 L MCV 80.9 MCH 26.8 MCHC 33.1 RDW 14.6 Plt Count 150 Neut % (Auto) 90.1 H Lymph % (Auto) 5.3 L [place] % (Auto) 4.2 Eos % (Auto) 0.2 L Baso % (Auto) 0.2 Neut # (Auto) 99381 H Lymph # (Auto) 600 L [place] # (Auto) 500 Eos # (Auto) 0 Baso # (Auto) 0 Sodium Potassium Chloride Carbon Dioxide BUN Creatinine Estimated GFR BUN/Creatinine Ratio Glucose Calcium Phosphorus 3.1 Magnesium TSH 0.76 Cortisol AM Sample 11/30/18 05:20 WBC RBC Hgb Hct MCV MCH MCHC RDW Plt Count Neut % (Auto) Lymph % (Auto) [place] % (Auto) Eos % (Auto) Baso % (Auto) Neut # (Auto) Lymph # (Auto) [place] # (Auto) Eos # (Auto) Baso # (Auto) Sodium 138 Potassium 3.6 Chloride 105 Carbon Dioxide 29 BUN 15 Creatinine 0.70 Estimated GFR > 60.0 BUN/Creatinine Ratio 21.4 Glucose 124 H Calcium 8.4 Phosphorus Magnesium TSH Cortisol AM Sample Assessment & Plan Post-op Postoperative Procedures Operation Date: 11/28/18 07:45 Actual Procedures Side Surgeon p Total Hip Arthroplasty Revision Left Catarina Mccullough MD Patient's vitals have improved compared to yesterday. Medicine continues to follow for adrenal crisis and history of severe COPD which we appreciate. Goal for today is to mobilize with PT if able to tolerate. Consider discontinue orellana if she is able to mobilize today, but likely not until tomorrow. Plan is to discharge to SNF on her third day if medically stable. Quality VTE Deep Vein Thrombosis/Pulmonary Embolism Present on Admission: No
[2018-11-30] MEDS: HYDROCORTISONE 10 MG TABLET 5 MG PO ×2 (11:54→14:34)
--- NOTE | 2018-11-30 12:13 | PT.IPTN ---
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) Surgery Performed Operation Date: 11/28/18 07:45 Actual Procedures p Total Hip Arthroplasty Revision(Left) - Catarina Mccullough MD Physical Therapy Treatment Note M2 PT-IP Current Condition Start: 11/28/18 13:55 Freq: NEEDED Status: Active Protocol: Document 11/29/18 12:30 AB (Rec: 11/29/18 14:42 AB [id number]) Physical Therapy Current Condition Current Condition Evaluation Date 11/29/18 Treatment Diagnosis s/p L ANGELICA posterior approach; difficulty in walking Onset Date 11/28/18 Precautions Posterior Hip Precautions No Hip Flexion > 90 degrees No Hip Internal Rotation No Hip Adduction Weight Bearing Status Weight Bearing Status Weight Bear as Tolerated M3 PT-IP Subjective Start: 11/28/18 13:55 Freq: NEEDED Status: Active Protocol: Document 11/30/18 12:05 SA (Rec: 11/30/18 12:13 SA [email or web address]) Subjective Physical Therapy Visit Type Type Treatment Note Visit Start Time 09:12 Visit Stop Time 09:40 Total Visit Minutes [address] DESIGN DRAFTSPERSON Visits 1 Physical Therapy Visit Comments Patient Comments Pt in bed with family present, agreeable to PT. Had pain meds about 90 min ago. Therapy Pain Assessment Pain When Pain Assessed During Mobility Pain Present Pain Present Pain Reported Location left leg Intensity 4 Scale Used Numeric (1 - 10) Pain Management Techniques Re-positioning Timing of Activity with Medications M4 PT-IP Mobility and Gait Start: 11/28/18 13:55 Freq: NEEDED Status: Active Protocol: Document 11/30/18 12:05 SA (Rec: 11/30/18 12:13 SA [email or web address]) PT-Bed Mobility Assessment Supine to Sit Supine to Sit Moderate Assistance 1 Person Assistance Bedrails Scooting Scooting to Edge of Bed Moderate Assistance Scooting Up and Down in Bed Moderate Assistance PT-Transfer Assessment Sit to and From Stand Sit to and from Stand Moderate Assistance 1 Person Assistance Use of Upper Extremities Equipment Transfer Assistive Device Gait Belt Front Wheeled Walker Orthotic/Prosthetic Devices or Brace: No Transfers Transfer Destination Chair Transfer Technique Stand Step Pivot Transfer Ability Level of Assist Minimal Assistance 1 Person Assistance Comments Mobility Comments Pt BP at start of session 170/ 124 seated at EOB. HR in 90s at rest but up to 130 with activity, 02 sats dropped to 82% with activity on 3L. Cues for PLB and rest breaks with mobility, slow segmental movements Gait Assessment Gait Gait Assistance Required: Minimum Assistance 1 Person Assist Distance (Feet) 5 Able to Maintain Weight Bearing Status Yes During Gait Assistive Devices Assistive Device Gait Belt Front Wheeled Walker Gait Deviations General Gait Pattern Antalgic Decreased Stride Length Decreased Feet Clearance Factors Limiting Gait Function Factors Limiting Gait Function Decreased Activity Tolerance Decreased Strength Limited Range of Motion Pain Poor Balance Poor Safety Awareness Comments Gait Comments SOB most limiting rather than pain this session, standing rest breaks with short walk/ transfer to chair and cues for PLB. Pt recovered to 98% 02 sats at end of session while seated in chair but dropped to low 80s during mobility. M5 PT-IP Objective Assessments Start: 11/28/18 13:55 Freq: NEEDED Status: Active Protocol: Document 11/29/18 12:30 AB (Rec: 11/29/18 14:42 AB [id number]) Orientation Orientation/Cognition Level of Alertness Alert Orientation Name Place Situation Language Function Ability Hard of Hearing Safety Awareness Decreased Safety Awareness Memory Description Short Term Impaired Strength Lower Extremity Strength Assessment Bilaterally Impaired Comments Strength Comments LLE: 3+/5 RLE 4-/5 Coordination Assessment Gross Coordination Gross Coordination WNL Sensation Assessment Sensation Gross Sensation WNL Muscle Tone Muscle Tone WNL Yes M6 PT-IP Treatment Start: 11/28/18 13:55 Freq: NEEDED Status: Active Protocol: Document 11/30/18 12:05 SA (Rec: 11/30/18 12:13 [email or web address]) Physical Therapy Treatment Exercises Exercises Ankle Pumps Gluteal Sets Education Education Provided Precautions Weight Bearing Status Post-Op Packet Safety Other Treatments Other Treatment Performed Education for breathing tecniques and mobility management. M7 PT-IP Assessment and Plan Start: 11/28/18 13:55 Freq: NEEDED Status: Active Protocol: Document 11/30/18 12:05 SA (Rec: 11/30/18 12:13 SA [email or web address]) PT Summary Assessment and Plan Summary Assessment Summary Pt with decreasing level of assist with bed mobility and transfers. SOB and low 02 levels limiting mobility, supplamental 02 3-4L during session. Frequency of Treatment Frequency Of Treatment Twice a Day Treatment Plan Physical Therapy Treatment Plan Bed Mobility Training Transfer Training Gait Training Therapeutic Exercise Balance Retraining Post Op Education Discharge Planning Hot or Cold Pack Neuromuscular Re-ed Coordination Retraining Manual Therapy Recommendations To Nursing Amount of Assist Needed 1 Person Assist Discharge Recommendations PT Discharge Recommendations SNF Rehab
--- NOTE | 2018-11-30 13:57 | PM.CHAP ---
drafter (cad) electronic flag on chart. Patient requested prayer for herself and her family.
--- NOTE | 2018-11-30 14:39 | PT.IPTN ---
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) Surgery Performed Operation Date: 11/28/18 07:45 Actual Procedures p Total Hip Arthroplasty Revision(Left) - Catarina Mccullough MD Physical Therapy Treatment Note M2 PT-IP Current Condition Start: 11/28/18 13:55 Freq: NEEDED Status: Active Protocol: Document 11/29/18 12:30 AB (Rec: 11/29/18 14:42 AB [id number]) Physical Therapy Current Condition Current Condition Evaluation Date 11/29/18 Treatment Diagnosis s/p L ANGELICA posterior approach; difficulty in walking Onset Date 11/28/18 Precautions Posterior Hip Precautions No Hip Flexion > 90 degrees No Hip Internal Rotation No Hip Adduction Weight Bearing Status Weight Bearing Status Weight Bear as Tolerated M3 PT-IP Subjective Start: 11/28/18 13:55 Freq: NEEDED Status: Active Protocol: Document 11/30/18 13:56 LJ (Rec: 11/30/18 14:39 LJ [id number]) Subjective Physical Therapy Visit Type Type Treatment Note Visit Start Time 13:54 Visit Stop Time 14:18 Total Visit Minutes 24 Number of ROVING TESTER LABORATORY Visits 2 Physical Therapy Visit Comments Patient Comments Pt sitting in chair. Nursing states they would like to remove orellana when pt is ready for standing. M4 PT-IP Mobility and Gait Start: 11/28/18 13:55 Freq: NEEDED Status: Active Protocol: Document 11/30/18 13:56 LJ (Rec: 11/30/18 14:39 LJ [id number]) PT-Bed Mobility Assessment Supine to Sit Supine to Sit Minimal Assistance 1 Person Assistance Bedrails Sit to Supine Sit to Supine Moderate Assistance 1 Person Assistance Head of Bed Elevated Bedrails Scooting Scooting Up and Down in Bed Moderate Assistance PT-Transfer Assessment Sit to and From Stand Sit to and from Stand Moderate Assistance 1 Person Assistance Use of Upper Extremities Equipment Transfer Assistive Device Gait Belt Front Wheeled Walker Orthotic/Prosthetic Devices or Brace: No Transfers Transfer Destination Bed Transfer Technique Stand Step Pivot Transfer Ability Level of Assist Minimal Assistance 1 Person Assistance Comments Mobility Comments BP remained in the low 90s/ 110s. HR steady at 90s. O2 sat lowest at 73%. took 8 min of seated rest to return O2 sat to low 90s. Pts mobility is improving. Required Eleno for transfers and bed mobility. Gait Assessment Gait Gait Assistance Required: Contact Guard Assist 1 Person Assist Distance (Feet) 12 Able to Maintain Weight Bearing Status Yes During Gait Assistive Devices Assistive Device Gait Belt Front Wheeled Walker Gait Deviations General Gait Pattern Antalgic Decreased Stride Length Decreased Feet Clearance Factors Limiting Gait Function Factors Limiting Gait Function Decreased Activity Tolerance Decreased Strength Limited Range of Motion Pain Poor Balance Poor Safety Awareness Comments Gait Comments SOB most limiting factor in pts mobility. CGA with continued short ambulation. Required 8 min seated rest break with continual PLB and O2 level increase. M5 PT-IP Objective Assessments Start: 11/28/18 13:55 Freq: NEEDED Status: Active Protocol: Document 11/29/18 12:30 AB (Rec: 11/29/18 14:42 AB [id number]) Orientation Orientation/Cognition Level of Alertness Alert Orientation Name Place Situation Language Function Ability Hard of Hearing Safety Awareness Decreased Safety Awareness Memory Description Short Term Impaired Strength Lower Extremity Strength Assessment Bilaterally Impaired Comments Strength Comments LLE: 3+/5 RLE 4-/5 Coordination Assessment Gross Coordination Gross Coordination WNL Sensation Assessment Sensation Gross Sensation WNL Muscle Tone Muscle Tone WNL Yes M6 PT-IP Treatment Start: 11/28/18 13:55 Freq: NEEDED Status: Active Protocol: Document 11/30/18 12:05 SA (Rec: 11/30/18 12:13 SA [email or web address]) Physical Therapy Treatment Exercises Exercises Ankle Pumps Gluteal Sets Education Education Provided Precautions Weight Bearing Status Post-Op Packet Safety Other Treatments Other Treatment Performed Education for breathing tecniques and mobility management. M7 PT-IP Assessment and Plan Start: 11/28/18 13:55 Freq: NEEDED Status: Active Protocol: Document 11/30/18 13:56 LJ (Rec: 11/30/18 14:39 LJ [id number]) PT Summary Assessment and Plan Summary Impairments Pain ROM Strength Balance Coordination Sensation Tone Cognition Bed Mobility Transfers Gait Activity Tolerance Assessment Summary Pt with decreasing level of assist with bed mobility and transfers. SOB and low 02 levels limiting mobility, supplamental 02 3-4L during session. Goals Bed Mobility Goal Standby Assistance Transfer Goal Standby Assistance Front Wheeled Walker Gait Goal Standby Assistance Front Wheel Walker Gait Distance 150 Frequency of Treatment Frequency Of Treatment Twice a Day Treatment Plan Physical Therapy Treatment Plan Bed Mobility Training Transfer Training Gait Training Therapeutic Exercise Balance Retraining Post Op Education Discharge Planning Hot or Cold Pack Neuromuscular Re-ed Coordination Retraining Manual Therapy Recommendations To Nursing Amount of Assist Needed 1 Person Assist Discharge Recommendations PT Discharge Recommendations SNF Rehab
--- NOTE | 2018-11-30 15:12 | P.PN_ITS ---
Subjective Date Patient Seen: 11/30/18 Time Patient Seen: 15:06 Interval history: Follow-up on hypotension due to adrenal crisis. Patient seen at bedside. This morning patient was complaining of increasing shortness of breath. Physical exam revealed mild crackles at bases. Patient was given Lasix 40 mg IV x1 with good urine output and improvement in her symptoms. Given that patient was unable to be weaned off of phenylephrine drip and all infectious processes were ruled out, Patient's cortisol levels were ordered yesterday morning. It came back at 1.68. Subsequent studies for cortisol stimulation test were done, along with measurement of renin, aldosterone, and aldosterone/renin ratio. Cortisol levels at 30 minutes and 1 hour came back as22.7 and 27.7 Respectively. ACTH level is still pending as it is a send out test as well as the renin, aldosterone and the ratio. Patient was deemed to be in adrenal crisis and started on hydrocortisone IV. She received 100 mg IV x1 at 6:00 p.m., with subsequent doses of 25 mg IV q.6 hours. By 1:00 a.m., patient's blood pressure has normalized and she was successfully titrated off phenylephrine drip. Given the concern of fluid overload this morning, patient's IV fluids were stopped and she was given Lasix IV 40 mg. Exam Vital Signs (past 8 hours): - 11/30/18 07:00 11/30/18 08:00 11/30/18 08:10 Temperature 98.7 F Pulse Rate 96 H 111 H Respiratory Rate 24 27 H Blood Pressure 128/87 167/106 H Pulse Oximetry 96 97 97 11/30/18 09:30 11/30/18 09:48 11/30/18 10:00 Temperature Pulse Rate 107 H 109 H 101 H Respiratory Rate 28 H 27 H 26 H Blood Pressure 170/124 H 130/77 89/54 L Pulse Oximetry 99 93 98 11/30/18 10:45 11/30/18 12:00 Temperature 97.4 F L Pulse Rate 97 H 90 Respiratory Rate 26 H 20 Blood Pressure 106/57 L 82/50 L Pulse Oximetry 96 100 Oxygen Delivery Method Nasal Cannula Oxygen Flow Rate 0 Narrative Exam Narrative: General: No acute distress, A/O x3 HEENT: PERRLA and EOMI bilaterally. Normocephalic, atraumatic. Moist mucous membranes. Nasal cannula in place. Neck: Supple, no LAD or JVD CV: Regular rate rhythm, no murmurs Respiratory: Minimal crackles appreciated at the bases bilaterally GI: Positive bowel sounds in all quadrants, nondistended, non tender. No organomegaly Musculoskeletal: Able to move all extremities Extremities: Left hip dressings in place with drain, draining minimal bloody fluid. No edema. 2+ pulses in all extremities Skin: warm to touch Neuro: No focal deficits, AAO x3 Psych: Appropriate mood and behavior Objective Labs Result Diagrams: 11/30/18 05:20 11/30/18 05:20 Labs: Laboratory Results - last 24 hr 11/29/18 11/30/18 11/30/18 17:00 05:20 05:20 WBC 10.2 RBC 3.51 L Hgb 9.6 L Hct 28.4 L MCV 81.0 MCH 27.5 MCHC 34.0 RDW 14.6 Plt Count 156 Neut % (Auto) 81.5 H Lymph % (Auto) 9.4 L [place] % (Auto) 7.0 Eos % (Auto) 1.8 L Baso % (Auto) 0.3 Neut # (Auto) 8300 H Lymph # (Auto) 1000 L [place] # (Auto) 700 Eos # (Auto) 200 Baso # (Auto) 0 Sodium Potassium Chloride Carbon Dioxide BUN Creatinine Estimated GFR BUN/Creatinine Ratio Glucose Calcium Phosphorus 3.1 TSH 0.76 11/30/18 11/30/18 05:20 05:20 WBC 11.8 H RBC 3.46 L Hgb 9.3 L Hct 28.0 L MCV 80.9 MCH 26.8 MCHC 33.1 RDW 14.6 Plt Count 150 Neut % (Auto) 90.1 H Lymph % (Auto) 5.3 L [place] % (Auto) 4.2 Eos % (Auto) 0.2 L Baso % (Auto) 0.2 Neut # (Auto) 14583 H Lymph # (Auto) 600 L [place] # (Auto) 500 Eos # (Auto) 0 Baso # (Auto) 0 Sodium 138 Potassium 3.6 Chloride 105 Carbon Dioxide 29 BUN 15 Creatinine 0.70 Estimated GFR > 60.0 BUN/Creatinine Ratio 21.4 Glucose 124 H Calcium 8.4 Phosphorus TSH Assessment & Plan Assessment & Plan narrative: 77-year-old female with past medical history of asthma/COPD overlap syndrome with chronic hypoxia on 2 L oxygen therapy at home, ALIREZA on CPAP, hypertension, breast cancer status post radiation, GERD, mild pulmonary hypertension was admitted by Dr. Mccullough, orthopedics, status post left hip replacement. Services were consulted for comanagement of patient's pulmonary condition. 1. Left hip fracture, chronic, present on admission -status post left hip arthroplasty -management as per primary team -Tylenol and Oxycodone as needed for pain, aspirin 81 mg p.o. b.i.d. and SCD boots for DVT prophylaxis -Rudolph removed 2. Hypotension, acute, ongoing, with slight improvement -Likely due to adrenal crisis, as evidenced by lab tests -AM cortisol level 1.68. However subsequent cortisol levels with ACTH stimulation were 22.7 and 27.7, which rules out primary adrenal insufficiency -ACTH levels, renin, aldosterone levels are all send out tests and are pending -Infectious work up only pertinent for WBC that has improved. Lactate and procalc are negative. UA negative. Blood cx pending. CXR did not reveal acute cardiopulmonary disease -patient was given stress dose steroid of Hydrocortisone 100mg IV followed by 25mg IV Q6H. BP now improved and phenylephrine/IVF stopped -Continue to monitor BP on telemetry -hold home medication regimen indapamide and lisinopril -I attempted to call Dr. Davis, patient's writing tutor to assess the frequen cy of prednisone use (although patient denies using any in the last year with exception of Breo inhaler), but unable to get a hold of him as he is out of reach until wednesday. (phone: [phone] and [phone]) 3. Urinary retention, acute -Possibly due to anasthesia effect -Rudolph catheter is now out..Monitor UOP with bladder scan protocol 4. Asthma/COPD overlap syndrome -patient currently is not in exacerbation although had increasing SOB this am (likely fluid- now improved with Lasix) -no evidence of wheezing on physical exam -Per Pulmonary recommendations, continue albuterol and Breo (symbicort prescribed but patient didn't bring) -duo nebs q.4 hours as needed for wheezing with consult to respiratory therapy -incentive spirometry -continue home regimen O2 therapy 2 L nasal cannula 4. Obstructive sleep apnea, chronic, present on admission -continue CPAP therapy 5. Mild pulmonary hypertension chronic, present on admission -likely due to ALIREZA and COPD/asthma overlap -continue to manage the above 6. History of breast cancer, present on admission, inactive -status post radiation 7. GERD, chronic, present on admission -continue home regimen omeprazole (pantoprazole while inpatient) therapy Dispo: Patient is here s/p L hip replacement. Currently treating adrenal crisis with hydrocortisone. Will need to be transitioned to PO once BP is stable. FULL CODE DVT PPx with SCD boots Quality VTE Deep Vein Thrombosis/Pulmonary Embolism Present on Admission: No
--- NOTE | 2018-11-30 15:20 | PC.NURSE ---
Transfer Note Transferred to room 224 at 1455 via bed. All belongings to room including CPAP machine, own neb machine, hearing aids, and dentures. Report given to Kristen SHER.
--- NOTE | 2018-11-30 20:30 | PC.NURSE ---
activity tolerance pt up to BSC around 1999. pt SOB with exertion needing to take a break and sit at edge of bed before getting all the way up to commode. O2 sats low 90's on 2.5L O2 with activity. HR increased from 80s to 110s with activity. SOB and HR resolved within minutes of pt being at rest.
[2018-12-01] VITALS (37 sets, daily range): BP systolic 68–179; BP diastolic 36–99; PULSE 74–105; RESP 13–24; TEMP 36.2–37.1; O2SAT 90–100
[2018-12-01] MEDS: OXYCODONE IR 5 MG TABLET PO ×3 (04:05→11:47)
--- NOTE | 2018-12-01 04:46 | PC.NURSE ---
Addendum entered by Rafal Fall R.N. 12/01/18 06:52: 0645: Assisted to turn and reposition. Pt having pain 10/14. Medicated with Oxycodone 5mg po. Original Note: Merchandising Assistant Note: 0000: Pt resting in bed, arouses easily. Current blood pressure 162/89. PICC in rt upper arm intact, dressing cdi. Pt denies pain at this time. 0240: PUMA Yeager notified of current blood pressure of 148/75. New orders are to hold the next dose of Hydrocortisone (0300).
[2018-12-01] MEDS: PANTOPRAZOLE 40 MG TABLET PO (06:16)
[2018-12-01 06:24] LABS: Add Manual Diff / Slide Review NO; Basophils Absolute Auto 100 /uL (0-100); Basophils Percent Auto 0.7 % (0-2); Eosinophils Absolute Auto 300 /uL (0-450); Eosinophils Percent Auto 3.2 % (2-4); Hematocrit 28.7 % (36-46); Hemoglobin 9.8 g/dL (12.0-16.0); Lymphocytes Absolute Auto 1000 /uL (1100-4500); Lymphocytes Percent Auto 9.5 % (25-40); Mean Corpuscular HGB Conc 34.2 % (30-36); Mean Corpuscular Hemoglobin 27.4 PG (26-34); Mean Corpuscular Volume 80.2 fL (80-100); Monocytes Absolute Auto 700 /uL (0-900); Monocytes Percent Auto 6.5 % (3-14); Neutrophils Absolute Auto 8600 /uL (1500-7000); Neutrophils Percent Auto 80.1 % (50-75); Platelet Count 181 X10^3/uL (150-400); Red Blood Cell Count 3.58 X10^6/uL (4.0-5.2); Red Cell Distribution Width 14.5 % (11.6-14.8); White Blood Cell Count 10.7 X10^3/uL (4.5-11.0)
[2018-12-01 06:30] LABS: Blood Urea Nitrogen 14 mg/dL (7-17); Carbon Dioxide 31 mmol/L (22-32); Chloride 103 mmol/L (98-107); Estimated Glomerular Filt Rate > 60.0 mL/min (>60); Glucose 93 mg/dL (80-110); HEMOLYSIS < 15 (0-50); Potassium 3.8 mmol/L (3.4-5.1); Sodium 138 mmol/L (137-145)
[2018-12-01] MEDS: ACETAMINOPHEN 325 MG TABLET 975 MG PO ×3 (09:31→20:35)
[2018-12-01] MEDS: HYDROCORTISONE 10 MG TABLET PO ×2 (09:32→16:25)
[2018-12-01] MEDS: ASPIRIN EC 81 MG TABLET PO ×2 (09:32→20:34)
[2018-12-01] MEDS: DOCUSATE 100 MG CAPSULE PO ×2 (09:32→20:34)
[2018-12-01] MEDS: SERTRALINE 50 MG TABLET PO (09:32)
[2018-12-01] MEDS: POLYETHYLENE GLYCOL 3350 17 GM POWD.PACK PO (09:33)
--- NOTE | 2018-12-01 09:39 | PT.IPTN ---
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) Surgery Performed Operation Date: 11/28/18 07:45 Actual Procedures p Total Hip Arthroplasty Revision(Left) - Catarina Mccullough MD Physical Therapy Treatment Note M2 PT-IP Current Condition Start: 11/28/18 13:55 Freq: NEEDED Status: Active Protocol: Document 11/29/18 12:30 AB (Rec: 11/29/18 14:42 AB [id number]) Physical Therapy Current Condition Current Condition Evaluation Date 11/29/18 Treatment Diagnosis s/p L ANGELICA posterior approach; difficulty in walking Onset Date 11/28/18 Precautions Posterior Hip Precautions No Hip Flexion > 90 degrees No Hip Internal Rotation No Hip Adduction Weight Bearing Status Weight Bearing Status Weight Bear as Tolerated M3 PT-IP Subjective Start: 11/28/18 13:55 Freq: NEEDED Status: Active Protocol: Document 12/01/18 09:29 SA (Rec: 12/01/18 09:39 SA [id number]) Subjective Physical Therapy Visit Type Type Treatment Note Visit Start Time 08:58 Visit Stop Time 09:28 Total Visit Minutes 30 Number of CONFLICTS ANALYST Visits 3 Physical Therapy Visit Comments Patient Comments Pt up in chair and agreeable to PT. Therapy Pain Assessment Pain When Pain Assessed During Mobility Pain Present Pain Present Pain Reported Location left leg Intensity 4 Scale Used Numeric (1 - 10) Pain Management Techniques Re-positioning Timing of Activity with Medications M4 PT-IP Mobility and Gait Start: 11/28/18 13:55 Freq: NEEDED Status: Active Protocol: Document 12/01/18 09:29 SA (Rec: 12/01/18 09:39 [id number]) PT-Transfer Assessment Sit to and From Stand Sit to and from Stand Minimal Assistance 1 Person Assistance Use of Upper Extremities Equipment Transfer Assistive Device Gait Belt Front Wheeled Walker Orthotic/Prosthetic Devices or Brace: No Transfers Transfer Destination Bed Chair Transfer Technique Stand Step Pivot Transfer Ability Level of Assist Contact Guard Assistance 1 Person Assistance Comments Mobility Comments At rest HR 90 and 02 96% on 3L , with standing activity/gait HR 104-122 and 02 82-89% on 4L . PT Min A-CGA with txs and gait. Slow movements with breahting breaks. Gait Assessment Gait Gait Assistance Required: Contact Guard Assist 1 Person Assist Distance (Feet) 12 Able to Maintain Weight Bearing Status Yes During Gait Assistive Devices Assistive Device Gait Belt Front Wheeled Walker Gait Deviations General Gait Pattern Antalgic Decreased Stride Length Decreased Feet Clearance Factors Limiting Gait Function Factors Limiting Gait Function Decreased Activity Tolerance Decreased Strength Limited Range of Motion Comments Gait Comments Pt walked 6 + 6 feet with 3 min seated rest break between and 02 sats dropping as low as 82%. 3 min seated rest break to recover to 92% after 6 foot walk. Improving funcitonal mobility continued SOB and dropping 02 sats with activity . M5 PT-IP Objective Assessments Start: 11/28/18 13:55 Freq: NEEDED Status: Active Protocol: Document 11/29/18 12:30 AB (Rec: 11/29/18 14:42 AB [id number]) Orientation Orientation/Cognition Level of Alertness Alert Orientation Name Place Situation Language Function Ability Hard of Hearing Safety Awareness Decreased Safety Awareness Memory Description Short Term Impaired Strength Lower Extremity Strength Assessment Bilaterally Impaired Comments Strength Comments LLE: 3+/5 RLE 4-/5 Coordination Assessment Gross Coordination Gross Coordination WNL Sensation Assessment Sensation Gross Sensation WNL Muscle Tone Muscle Tone WNL Yes M6 PT-IP Treatment Start: 11/28/18 13:55 Freq: NEEDED Status: Active Protocol: Document 12/01/18 09:29 SA (Rec: 12/01/18 09:39 [id number]) Physical Therapy Treatment Exercises Exercises Ankle Pumps Seated Knee Flexion/Extension Education Education Provided Precautions Weight Bearing Status Post-Op Packet Safety M7 PT-IP Assessment and Plan Start: 11/28/18 13:55 Freq: NEEDED Status: Active Protocol: Document 12/01/18 09:29 SA (Rec: 12/01/18 09:39 [id number]) PT Summary Assessment and Plan Summary Assessment Summary Increased time for rest breaks and PLB to recover 02, SOB still most limiting factor to mobility. Pt rates hip pain as 4-5/10 but is able to WB well through LLE. Recommendations To Nursing Amount of Assist Needed 1 Person Assist Discharge Recommendations PT Discharge Recommendations SNF Rehab
[2018-12-01] MEDS: ALBUTEROL HFA 60 PUFF/8 GM INH INH (09:45)
--- NOTE | 2018-12-01 09:53 | PM.PNPO.1 ---
Subjective Date Patient Seen: 12/01/18 Time Patient Seen: 09:54 Interval history: Patient is POD#3 s/p left total hip arthroplasty with Dr. Mccullough. Vitals remained stable overnight. She continues to have shortness of breath greater than her baseline. Continues to be limited with mobility secondary to her respiratory status but has mobilized about the room somewhat with physical therapy. Hip pain has been well controlled. She is tolerating a diet and is voiding. Exam Vital Signs (past 8 hours): - 12/01/18 02:31 12/01/18 03:31 12/01/18 03:56 Temperature 98.0 F Pulse Rate 77 105 H 90 Respiratory Rate 18 13 Blood Pressure 148/75 H 179/93 H Pulse Oximetry 97 90 L 98 12/01/18 05:29 12/01/18 06:34 12/01/18 07:53 Temperature 98.8 F Pulse Rate 92 H 92 H 97 H Respiratory Rate 18 22 Blood Pressure 146/90 H 149/88 H 128/81 Pulse Oximetry 99 98 96 Oxygen Delivery Method Nasal Cannula Oxygen Flow Rate 3.5 Narrative Exam Narrative: Pleasant 77 year old female sitting in chair. Alert and oriented in no acute distress. Dressing in place over left hip is clean, dry and intact. Active flexion/extension of the knee and ankle. Sensation intact to light touch. Palpable pedal pulse. Calves soft, compressible bilaterally. Objective Labs Result Diagrams: 12/01/18 05:30 12/01/18 05:30 Labs: Laboratory Results - last 24 hr 12/01/18 12/01/18 05:30 05:30 WBC 10.7 RBC 3.58 L Hgb 9.8 L Hct 28.7 L MCV 80.2 MCH 27.4 MCHC 34.2 RDW 14.5 Plt Count 181 Neut % (Auto) 80.1 H Lymph % (Auto) 9.[address] [place] % (Auto) 6.5 Eos % (Auto) 3.2 Baso % (Auto) 0.7 Neut # (Auto) 8600 H Lymph # (Auto) [address] [place] # (Auto) 700 Eos # (Auto) 300 Baso # (Auto) 100 Sodium 138 Potassium 3.8 Chloride 103 Carbon Dioxide 31 BUN 14 Creatinine 0.70 Estimated GFR > 60.0 BUN/Creatinine Ratio 20.0 Glucose 93 Calcium 9.0 Assessment & Plan Post-op Postoperative Procedures Operation Date: 11/28/18 07:45 Actual Procedures Side Surgeon p Total Hip Arthroplasty Revision Left Catarina Mccullough MD Patient remains slow to mobilize due to concurrent COPD/asthma. Hospitalist is following as well, which we appreciate. Adrenal crisis was discussed with endocrinology who recommend she continue hydrocortisone 10mg QAM and 5mg QHS. She will require this at discharge as well as outpatient follow up with endocrinology 1-2 weeks from discharge to manage taper. Like discharge to SNF ([facility]) tomorrow. Quality VTE Deep Vein Thrombosis/Pulmonary Embolism Present on Admission: No
[2018-12-01] MEDS: ALBUTEROL/IPRATROPIUM 3 ML AMPUL INH ×2 (09:56→20:02)
[2018-12-01] MEDS: BREO 1 EACH INH (09:56)
--- NOTE | 2018-12-01 09:56 | P.PN_ITS ---
Subjective Date Patient Seen: 12/01/18 Time Patient Seen: 09:54 Interval history: Patient is POD#3 s/p left total hip arthroplasty with Dr. Mccullough. Vitals remained stable overnight. She continues to have shortness of breath greater than her baseline. Continues to be limited with mobility sec ondary to her respiratory status but has mobilized about the room somewhat with physical therapy. Hip pain has been well controlled. She is tolerating a diet and is voiding. Exam Vital Signs (past 8 hours): - 12/01/18 02:31 12/01/18 03:31 12/01/18 03:56 Temperature 98.0 F Pulse Rate 77 105 H 90 Respiratory Rate 18 13 Blood Pressure 148/75 H 179/93 H Pulse Oximetry 97 90 L 98 12/01/18 05:29 12/01/18 06:34 12/01/18 07:53 Temperature 98.8 F Pulse Rate 92 H 92 H 97 H Respiratory Rate 18 22 Blood Pressure 146/90 H 149/88 H 128/81 Pulse Oximetry 99 98 96 Oxygen Delivery Method Nasal Cannula Oxygen Flow Rate 3.5 Narrative Exam Narrative: Pleasant 77 year old female sitting in chair. Alert and oriented in no acute distress. Dressing in place over left hip is clean, dry and intact. Active flexion/extension of the knee and ankle. Sensation intact to light touch. Palpable pedal pulse. Calves soft, compressible bilaterally. Objective Labs Result Diagrams: 12/01/18 05:30 12/01/18 05:30 Labs: Laboratory Results - last 24 hr 12/01/18 12/01/18 05:30 05:30 WBC 10.7 RBC 3.58 L Hgb 9.8 L Hct 28.7 L MCV 80.2 MCH 27.4 MCHC 34.2 RDW 14.5 Plt Count 181 Neut % (Auto) 80.1 H Lymph % (Auto) 9.5 L [place] % (Auto) 6.5 Eos % (Auto) 3.2 Baso % (Auto) 0.7 Neut # (Auto) 8600 H Lymph # (Auto) 1000 L [place] # (Auto) 700 Eos # (Auto) 300 Baso # (Auto) 100 Sodium 138 Potassium 3.8 Chloride 103 Carbon Dioxide 31 BUN 14 Creatinine 0.70 Estimated GFR > 60.0 BUN/Creatinine Ratio 20.0 Glucose 93 Calcium 9.0 Assessment & Plan Post-op Postoperative Procedures Operation Date: 11/28/18 07:45 Actual Procedures Side Surgeon p Total Hip Arthroplasty Revision Left Catarina Mccullough MD Patient remains slow to mobilize due to concurrent COPD/asthma. Hospitalist is following as well, which we appreciate. Adrenal crisis was discussed with endocrinology who recommend she continue hydrocortisone 10mg QAM and 5mg QHS. She will require this at discharge as well as outpatient follow up with endocrinology 1-2 weeks from discharge to manage taper. Like discharge to SNF ([facility]) tomorrow. Quality VTE Deep Vein Thrombosis/Pulmonary Embolism Present on Admission: No
--- NOTE | 2018-12-01 11:20 | P.PN_ITS ---
Subjective Date Patient Seen: 12/01/18 Interval history: Xi Osorio is a 77-year-old female with past medical history significant for asthma/COPD overlap syndrome with chronic hypoxia on 2-3 L oxygen therapy at home, ALIREZA on CPAP, hypertension, breast cancer status post radiation, GERD, mild pulmonary hypertension who was admitted by Dr. Mccullough, of Orthopedic surgery for left hip replacement. Services were consulted for co-management of patient's pulmonary condition. The patient is resting in bed comfortably. She endorses chronic cough and sensation that phlegm is stuck in the back of her throat that she is unable to expectorate. She feels her breathing and shortness of breath is close to basel ine. She is currently on her baseline oxygen requirement of 2-3 L. She has no other complaints and denies lightheadedness, dizziness, headache, chest pain, abdominal pain, nausea, vomiting, fever, chills, dysuria, diarrhea or constipation. She is voiding without difficulty. She has not had a bowel movement since the day of admission and a bowel regimen has been implemented. She is up ambulating with assistance. Exam Vital Signs (past 8 hours): - 12/01/18 03:31 12/01/18 03:56 12/01/18 05:29 Temperature 98.0 F Pulse Rate 105 H 90 92 H Respiratory Rate 13 18 Blood Pressure 179/93 H 146/90 H Pulse Oximetry 90 L 98 99 12/01/18 06:34 12/01/18 07:53 12/01/18 09:57 Temperature 98.8 F Pulse Rate 92 H 97 H 102 H Respiratory Rate 22 22 Blood Pressure 149/88 H 128/81 Pulse Oximetry 98 96 96 12/01/18 10:23 Temperature Pulse Rate 102 H Respiratory Rate 22 Blood Pressure Pulse Oximetry 96 Oxygen Delivery Method Nasal Cannula Oxygen Flow Rate 3 Narrative Exam Narrative: General: Elderly female lying in bed and in no acute distress, pale and mildly lethargic, well-developed, well-nourished, appropriately interactive. HEENT: Normocephalic, atraumatic. External ears without defect. Pupils equal, round, and reactive to light. Anicteric sclerae, moist conjunctivae, and no lid lag. Neck: Supple with full range of motion. No jugular venous distension. No lymphadenopathy or thyromegaly. Cardiovascular: Regular rate and rhythm without murmurs, rubs, or gallops appreciated. Pulmonary: Diminished throughout with occasional bibasilar crackle. No wheeze or rhonchi. Normal respiratory effort with no use of accessory muscles. Abdomen: Soft, bowel sounds present, nontender, nondistended. No hepatosplenomegaly or masses appreciated. Extremities: No clubbing, cyanosis, or edema. Left hip with dressing in place C/D/I. No surrounding erythema. Distal pulses intact. Skin: Normal temperature, turgor, and texture; no rash, ulcers, or subcutaneous nodules appreciated. Neurological: Cranial nerves grossly intact. Psychiatric: Depressed mood and flat affect. Alert and oriented to person, place, and time. Objective Labs Result Diagrams: 12/01/18 05:30 12/02/18 05:22 Labs: Laboratory Results - last 24 hr 12/01/18 12/01/18 05:30 05:30 WBC 10.7 RBC 3.58 L Hgb 9.8 L Hct 28.7 L MCV 80.2 MCH 27.4 MCHC 34.2 RDW 14.5 Plt Count 181 Neut % (Auto) 80.1 H Lymph % (Auto) 9.5 L [place] % (Auto) 6.5 Eos % (Auto) 3.2 Baso % (Auto) 0.7 Neut # (Auto) 8600 H Lymph # (Auto) 1000 L [place] # (Auto) 700 Eos # (Auto) 300 Baso # (Auto) 100 Sodium 138 Potassium 3.8 Chloride 103 Carbon Dioxide 31 BUN 14 Creatinine 0.70 Estimated GFR > 60.0 BUN/Creatinine Ratio 20.0 Glucose 93 Calcium 9.0 Assessment & Plan Assessment & Plan narrative: Xi Osorio is a 77-year-old female with past medical history significant for asthma/COPD overlap syndrome with chronic hypoxia on 2-3 L oxygen therapy at home, ALIREZA on CPAP, hypertension, breast cancer status post radiation, GERD, mild pulmonary hypertension who was admitted by Dr. Mccullough, of Orthopedic surgery for left hip replacement. Services were consulted for co-management of patient's pulmonary condition. 1. Left hip fracture status post ORIF, present on admission. Stable. -Continue postoperative in pain management as per primary team. 2. Acute hypotension, secondary to adrenal crisis, not present on admission. Active. -Likely stress induced secondary to surgery and evidenced by lab tests and hypotension unresponsive to IVF requiring vasopressor with phenylephrine. -AM cortisol level significantly low at 1.68. ACTH stim test demonstrated response to cosyntropin with cortisol levels of were 22.7 and 27.7 30 minutes and 1 hour after administration which makes primary adrenal insufficiency less likely. -ACTH levels, renin, aldosterone levels are all send out tests and are pending. -Infectious work up only pertinent for WBC that has improved. Lactate and procalc are negative. UA negative. Blood cx pending. CXR did not reveal acute cardiopulmonary disease. -Continue to monitor BP closely. -Held home medication regimen indapamide and lisinopril -previous provider attempted to contact Dr. Davis, patient's rehab nurse to assess the frequency of prednisone use (although patient denies using any in the last year with exception of Breo inhaler), but unable to get a hold of him as he is out of reach until wednesday (phone: [phone] and [phone]). -Received stress dose steroid of Hydrocortisone 100 mg IV x 1, followed by 25 mg IV every 6 hours with improvement of blood pressure and titration off IV fluids and phenylephrine. -Discussed case with Endocrinology at [facility] who recommend physiological replacement doses of hydrocortisone between 15-25 mg/day divided in 2 doses and close outpatient follow-up with Endocrinology in the next 1-2 weeks to potentially titrate off hydrocortisone and repeat ACTH stim test to assess whether patient truly has adrenal insufficiency (primary, secondary, or tertiary). -Transitioning patient today to oral hydrocortisone 10 mg daily in the morning and 5 mg daily in the evening. Will titrate as needed for BP response. 3. Acute urinary retention, not present on admission. Resolved. -Possibly due to anasthesia effect. -Rudolph catheter is now out. Continue to monitor UOP with bladder scan protocol. 4. Asthma/COPD overlap syndrome with chronic hypoxemic respiratory failure on oxygen, present on admission. Stable. -Patient currently is not in exacerbation. No evidence of wheezing on physical exam -Per Pulmonary recommendations, continue albuterol, Breo (symbicort prescribed but patient didn't bring), and DuoNebs every 4 hours as needed for wheezing. -Consulted respiratory therapy for evaluation and treatment. Continue incentive spirometry and in addition added Acapella and mucinex to aid in sputum e xpectoration. Continue home regimen oxygen therapy 2 L continuously via nasal cannula and 3 L with activity. 4. Obstructive sleep apnea on CPAP, chronic, present on admission. Stable. -Continue CPAP therapy per RT protocol. 5. Mild pulmonary hypertension, chronic, present on admission. Stable. -Likely due to ALIREZA and COPD/asthma overlap. -Continue to management as above. Received Lasix 40 mg IV x1. Ordered additional 20 mg IV x1 as patient is net + 4 L. monitor blood pressure closely. 6. History of breast cancer. -Status post radiation 7. GERD, chronic, present on admission -Continue home regimen omeprazole (pantoprazole while inpatient) therapy. Disposition: Plan to transition patient to oral hydrocortisone today and titrate as needed for BP response. [facility] if blood pressure is stab le. Quality VTE Deep Vein Thrombosis/Pulmonary Embolism Present on Admission: No
[2018-12-01] MEDS: FUROSEMIDE 40 MG/4 ML VIAL IV (11:26)
[2018-12-01] MEDS: BISACODYL 10 MG SUPP PR (11:47)
[2018-12-01] MEDS: guaiFENesin ER 600 MG TAB 1200 MG PO ×2 (11:47→20:35)
--- NOTE | 2018-12-01 15:51 | PT.IPTN ---
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) Surgery Performed Operation Date: 11/28/18 07:45 Actual Procedures p Total Hip Arthroplasty Revision(Left) - Catarina Mccullough MD Physical Therapy Treatment Note M2 PT-IP Current Condition Start: 11/28/18 13:55 Freq: NEEDED Status: Active Protocol: Document 11/29/18 12:30 AB (Rec: 11/29/18 14:42 AB [id number]) Physical Therapy Current Condition Current Condition Evaluation Date 11/29/18 Treatment Diagnosis s/p L ANGELICA posterior approach; difficulty in walking Onset Date 11/28/18 Precautions Posterior Hip Precautions No Hip Flexion > 90 degrees No Hip Internal Rotation No Hip Adduction Weight Bearing Status Weight Bearing Status Weight Bear as Tolerated M3 PT-IP Subjective Start: 11/28/18 13:55 Freq: NEEDED Status: Active Protocol: Document 12/01/18 13:05 AMB (Rec: 12/01/18 15:51 AMB [email or web address]) Subjective Physical Therapy Visit Type Type Treatment Note Visit Start Time 13:05 Visit Stop Time 13:45 Total Visit Minutes 40 Number of [employer] OPERATOR Visits 0 Physical Therapy Visit Comments Patient Comments Pt in bed with family sitting in room. States hip is feeling ok, but very short of breath. Therapy Pain Assessment Pain When Pain Assessed During Mobility Pain Present Pain Present Denied Pain M4 PT-IP Mobility and Gait Start: 11/28/18 13:55 Freq: NEEDED Status: Active Protocol: Document 12/01/18 13:05 AMB (Rec: 12/01/18 15:51 AMB [email or web address]) PT-Bed Mobility Assessment Supine to Sit Supine to Sit Minimal Assistance 1 Person Assistance Bedrails Sit to Supine Sit to Supine Minimal Assistance 1 Person Assistance Head of Bed Elevated Bedrails PT-Transfer Assessment Sit to and From Stand Sit to and from Stand Minimal Assistance 1 Person Assistance Use of Upper Extremities Equipment Transfer Assistive Device Gait Belt Front Wheeled Walker Orthotic/Prosthetic Devices or Brace: No Transfers Transfer Destination Bed Bedside Commode Transfer Technique Stand Step Pivot Transfer Ability Level of Assist Contact Guard Assistance 1 Person Assistance Comments Mobility Comments At rest HR 100s, O2 upper 90s on 3L O2. With activity HR up to 120-126, O2 did drop into the 80s 3x, but rebounded quickly with breathing. Gait Assessment Gait Gait Assistance Required: Contact Guard Assist 1 Person Assist Distance (Feet) 12 Able to Maintain Weight Bearing Status Yes During Gait Assistive Devices Assistive Device Gait Belt Front Wheeled Walker Gait Deviations General Gait Pattern Ataxic Decreased Feet Clearance Factors Limiting Gait Function Factors Limiting Gait Function Decreased Activity Tolerance Decreased Strength Limited Range of Motion Comments Gait Comments Pt walked 6'x2 with rest break , O2 stayed in 90s well, except for bed mobility when it did dip into the 80s. M5 PT-IP Objective Assessments Start: 11/28/18 13:55 Freq: NEEDED Status: Active Protocol: Document 11/29/18 12:30 AB (Rec: 11/29/18 14:42 AB [id number]) Orientation Orientation/Cognition Level of Alertness Alert Orientation Name Place Situation Language Function Ability Hard of Hearing Safety Awareness Decreased Safety Awareness Memory Description Short Term Impaired Strength Lower Extremity Strength Assessment Bilaterally Impaired Comments Strength Comments LLE: 3+/5 RLE 4-/5 Coordination Assessment Gross Coordination Gross Coordination WNL Sensation Assessment Sensation Gross Sensation WNL Muscle Tone Muscle Tone WNL Yes M6 PT-IP Treatment Start: 11/28/18 13:55 Freq: NEEDED Status: Active Protocol: Document 12/01/18 13:05 AMB (Rec: 12/01/18 15:51 AMB [email or web address]) Physical Therapy Treatment Education Education Provided Precautions Safety M7 PT-IP Assessment and Plan Start: 11/28/18 13:55 Freq: NEEDED Status: Active Protocol: Document 12/01/18 13:05 AMB (Rec: 12/01/18 15:51 AMB [email or web address]) PT Summary Assessment and Plan Summary Assessment Summary SOB continues to be more limiting than pain. Pt felt that she needed to sit down after 6' due to SOB despite O2 being in the mid 90s at that time. Goals Bed Mobility Goal Standby Assistance Transfer Goal Standby Assistance Front Wheeled Walker Gait Goal Standby Assistance Front Wheel Walker Gait Distance 150 Treatment Plan Physical Therapy Treatment Plan Bed Mobility Training Transfer Training Gait Training Therapeutic Exercise Balance Retraining Post Op Education Discharge Planning Hot or Cold Pack Neuromuscular Re-ed Coordination Retraining Manual Therapy Recommendations To Nursing Amount of Assist Needed 1 Person Assist Discharge Recommendations PT Discharge Recommendations SNF Rehab
--- NOTE | 2018-12-01 15:52 | DIET.PN ---
Dietary Progress Note Assessment: 77y F here for 3d s/p total L hip arthroplasty reports poor PO intake 25-50% meals. HT: 157.4cm WT: 77.5kg BMI: 31 Nutrition Diagnosis: Inadequate PRO intake r/t increased PRO needs s/p hip replacement aeb poor PO intake past 3d (25-50% meals), pt reports no appetite. Interventions: Recc ONS Ensure Chocolate bid between meals Monitoring/Evaluations: RD f/u 12/05
--- NOTE | 2018-12-01 17:05 | PC.NURSE ---
Addendum entered by Ina Mayorga R.N. 12/01/18 18:35: 1835 BP 99/65 HR [address] Chacon, ok to check BP at 30 min intervals. Addendum entered by Ina Mayorga R.N. 12/01/18 18:28: Patient awake, talking with family on phone. States no longer dizzy and just fatigued. Original Note: [facility] shift note: Patient awake and alert during shift change, Dr. Mccullough at bedside. Patient sitting up in bed, states feeling less fatigued than this morning. At 1600 it was reported to this RN regarding low blood pressure 68/36, this RN obtained a set of VS and patient continue with hypotension and dizziness. Dr. Chacon made aware promptly. New order obtained to admin Hydrocotisone 10 mg PO. Patients BP has fluctuated between 65/45 and as high as 127/60, this RN also checked manually. Please see flowsheet VS. Patient denies, chest pain, increased SOB, visual disturbance. States she is no longer dizzy. HR between 89-94. O2 sat 98-99% on 2 L of O2 via NC. Patient is sleepy, but arouses easily. Skin warm, pale. 2+ distal and proximal pulses. HR reg on auscultation. Will continue to monitor closely.
[2018-12-02] VITALS (15 sets, daily range): BP systolic 63–114; BP diastolic 37–71; PULSE 84–101; RESP 14–22; TEMP 36.4–37.7; O2SAT 88–100
--- NOTE | 2018-12-02 01:13 | PC.NURSE ---
Addendum entered by Lizzy Queen R.N. 12/02/18 06:28: Very SOB when up to C with sat dropping to low 90's. Voided 200cc urine/loose stool mix. States pain in hip is 3/10; medicated with Oxycodone. Original Note: Patient is alert and oriented but PLATINUM with bilateral hearing aids out for the night. Breath sounds diminished but CTA with sat of 99-100% on CPAP w/ 2L oxygen bled in. HRR; telemetry reading was SR w/premature atrial contractions. BT present and abdomen is soft. Denies dysuria, frequency or urgency. Needs assistance to turn q2h and gets out of bed with walker and 1 assist. Dressing to left hip and hemovac site (drain out) is CDI. Denies pain. CMS is intact. Wearing SCD on left LE. HOB elevated to 30 degrees as per order. Fall risk score is high; bed alarm is activated.
[2018-12-02 06:06] LABS: Blood Urea Nitrogen 20 mg/dL (7-17); Calcium 8.8 mg/dL (8.4-10.2); Carbon Dioxide 29 mmol/L (22-32); Chloride 101 mmol/L (98-107); Estimated Glomerular Filt Rate > 60.0 mL/min (>60); Glucose 90 mg/dL (80-110); HEMOLYSIS < 15 (0-50); Magnesium 1.4 mg/dL (1.6-2.3); Potassium 3.4 mmol/L (3.4-5.1); Sodium 138 mmol/L (137-145)
[2018-12-02] MEDS: PANTOPRAZOLE 40 MG TABLET PO (06:26)
[2018-12-02] MEDS: OXYCODONE IR 5 MG TABLET PO (06:26)
[2018-12-02] MEDS: MAGNESIUM SULFATE 2 GM/50 ML PIGGYBACK IV (06:39)
[2018-12-02] MEDS: SODIUM CHLORIDE 0.9% FLUSH 10 ML IV (06:39)
[2018-12-02 07:45] LABS: Adrenocorticotropic Hormone 32 pg/mL (6-50)
[2018-12-02] MEDS: ALBUTEROL/IPRATROPIUM 3 ML AMPUL INH ×2 (08:21→11:53)
[2018-12-02] MEDS: BREO 1 EACH INH (08:22)
--- NOTE | 2018-12-02 08:30 | PM.PN.1 ---
Subjective Date Patient Seen: 12/02/18 Interval history: Xi Osorio is a 77-year-old female with past medical history significant for asthma/COPD overlap syndrome with chronic hypoxia on 2-3 L oxygen therapy at home, ALIREZA on CPAP, hypertension, breast cancer status post radiation, GERD, mild pulmonary hypertension who was admitted by Dr. Mccullough, of Orthopedic surgery for left hip replacement. Services were consulted for co-management of patient's pulmonary condition. The patient is resting in bedside chair comfortably. Her blood pressure has been quite labile and likely are incorrect cuff readings. Patient has had no symptoms of hypotension as she did yesterday afternoon. She denies lightheadedness, dizziness, palpitations, tunnel vision, presyncope or syncope. Her breathing continues to be at her baseline. She feels less congested today likely due to Mucinex. She continues using incentive spirometer and Acapella. She continues to have cough paroxysms which are bronchospastic and related to her asthma/reactive airway disease that improved with breathing treatment. She is voiding and eliminating without difficulty. She has a good appetite. She is stable to be discharged to [facility] facility for continued rehabilitation. Exam Vital Signs (past 8 hours): - 12/02/18 01:42 12/02/18 03:25 12/02/18 06:41 Temperature 97.5 F L Pulse Rate 93 H 84 96 H Respiratory Rate 18 Blood Pressure 105/67 114/71 109/59 L Pulse Oximetry 95 100 97 Oxygen Delivery Method Nasal Cannula Oxygen Flow Rate 2 Narrative Exam Narrative: General: Elderly female lying in bed and in no acute distress, well-developed, well-nourished, appropriately interactive. HEENT: Normocephalic, atraumatic. External ears without defect. Pupils equal, round, and reactive to light. Anicteric sclerae, moist conjunctivae, and no lid lag. Neck: Supple with full range of motion. No jugular venous distension. No lymphadenopathy or thyromegaly. Cardiovascular: Regular rate and rhythm without murmurs, rubs, or gallops appreciated. Pulmonary: Diminished throughout but clear to auscultation bilaterally. Occasional scattered crackle. No wheezes or rhonchi. Normal respiratory effort with no use of accessory muscles. Abdomen: Soft, bowel sounds present, nontender, nondistended. No hepatosplenomegaly or masses appreciated. Extremities: No clubbing, cyanosis, or edema. Left hip with dressing in place C/D/I. No surrounding erythema. Distal pulses intact. Skin: Normal temperature, turgor, and texture; no rash, ulcers, or subcutaneous nodules appreciated. Neurological: Cranial nerves grossly intact. Psychiatric: Depressed mood and flat affect. Alert and oriented to person, place, and time. Objective Labs Result Diagrams: 12/01/18 05:30 12/02/18 05:22 Labs: Laboratory Results - last 24 hr 11/29/18 12/02/18 14:45 05:22 Sodium 138 Potassium 3.4 Chloride 101 Carbon Dioxide 29 BUN 20 H Creatinine 0.80 Estimated GFR > 60.0 BUN/Creatinine Ratio 25.0 H Glucose 90 Calcium 8.8 Magnesium 1.4 L ACTH 32 Assessment & Plan Assessment & Plan narrative: Xi Osorio is a 77-year-old female with past medical history significant for asthma/COPD overlap syndrome with chronic hypoxia on 2-3 L oxygen therapy at home, ALIREZA on CPAP, hypertension, breast cancer status post radiation, GERD, mild pulmonary hypertension who was admitted by Dr. Mccullough, of Orthopedic surgery for left hip replacement. Services were consulted for co-management of patient's pulmonary condition. 1. Left hip fracture status post ORIF, present on admission. Stable. -Continue postoperative in pain management as per primary team. 2. Acute hypotension, secondary to adrenal crisis, not present on admission. Active. -Likely stress induced secondary to surgery and evidenced by lab tests and hypotension unresponsive to IVF requiring vasopressor with phenylephrine. -AM cortisol level significantly low at 1.68. ACTH stim test demonstrated response to cosyntropin with cortisol levels of were 22.7 and 27.7 30 minutes and 1 hour after administration which makes primary adrenal insufficiency less likely. -ACTH level normal at 32. Renin and aldosterone levels are send out tests and pending. -Infectious work up only pertinent for WBC that has resolved. Lactate and procalcitonin are negative. UA negative. Blood cultures have no growth to date. CXR did not reveal acute cardiopulmonary disease. -Continue to monitor BP closely. Discontinued home antihypertensive regimen including indapamide and lisinopril. -Previous provider attempted to contact Dr. Davis, patient's early childhood education specialist to assess the frequency of prednisone use (although patient denies using any in the last year with exception of Breo inhaler), but unable to get a hold of him as he is out of reach until wednesday (phone: [phone] and [phone]). -Received stress dose steroid of Hydrocortisone 100 mg IV x 1, followed by 25 mg IV every 6 hours with improvement of blood pressure and titration off IV fluids and phenylephrine. -Discussed case with Endocrinology at [facility] who recommend physiological replacement doses of hydrocortisone between 15-25 mg/day divided in 2 doses and close outpatient follow-up with Endocrinology in the next 1-2 weeks to potentially titrate off hydrocortisone and repeat ACTH stim test to assess whether patient has adrenal insufficiency (primary, secondary, or tertiary). -Continue hydrocortisone 15 mg daily in the morning and 10 mg daily in the evening. Endocrinology also specified that if patient continues to be hypotensive with correlating symptoms it is driven by some other process not adrenal glands. 3. Acute urinary retention, not present on admission. Resolved. -Possibly due to anasthesia effect. -Rudolph catheter is now out. Continue to monitor UOP with bladder scan protocol. 4. Asthma/COPD overlap syndrome with chronic hypoxemic respiratory failure on oxygen, present on admission. Stable. -Patient currently is not in exacerbation. No evidence of wheezing on physical exam -Per Pulmonary recommendations, continue albuterol, Breo (symbicort prescribed but patient didn't bring), and DuoNebs every 4 hours as needed for wheezing. -Consulted respiratory therapy for evaluation and treatment. Continue incentive spirometry and in addition added Acapella and mucinex to aid in sputum expectoration. Continue home regimen oxygen therapy 2 L continuously via nasal cannula and 3 L with activity. 4. Obstructive sleep apnea on CPAP, chronic, present on admission. Stable. -Continue CPAP therapy per RT protocol. 5. Mild pulmonary hypertension, chronic, present on admission. Stable. -Likely due to ALIREZA and COPD/asthma overlap. -Continue to management as above. Received Lasix 40 mg IV x1. Ordered additional 20 mg IV x1 as patient is net + 4 L. monitor blood pressure closely. 6. History of breast cancer. -Status post radiation 7. GERD, chronic, present on admission -Continue home regimen omeprazole (pantoprazole while inpatient) therapy. Thank you for consulting our services. We will sign off at this time but feel free to contact us with any further questions. Quality VTE Deep Vein Thrombosis/Pulmonary Embolism Present on Admission: No
[2018-12-02] MEDS: DOCUSATE 100 MG CAPSULE PO (09:09)
[2018-12-02] MEDS: SERTRALINE 50 MG TABLET PO (09:10)
[2018-12-02] MEDS: guaiFENesin ER 600 MG TAB 1200 MG PO (09:10)
[2018-12-02] MEDS: ASPIRIN EC 81 MG TABLET PO (09:10)
[2018-12-02] MEDS: ACETAMINOPHEN 325 MG TABLET 975 MG PO (09:10)
[2018-12-02] MEDS: POTASSIUM CHLORIDE 8 MEQ TABLET PO (09:11)
[2018-12-02] MEDS: HYDROCORTISONE 10 MG TABLET PO (09:11)
[2018-12-02] MEDS: POTASSIUM CHLORIDE 40 MEQ in SODIUM CHLORIDE 0.9% 500 ML 130 ML IV (09:11)
--- NOTE | 2018-12-02 09:33 | P.DS_ITS ---
History of Present Illness Date Patient Seen: 12/02/18 Time Patient Seen: 09:33 Chief complaint: [id number] LEFT TOTAL HIP ARTHROPLASTY Narrative: This is a 77-year-old with a history of COPD who fell and sustained a displaced left femoral neck fracture. She was treated elsewhere with open reduction internal fixation. 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 Discharge Providers Date of admission: 11/28/18 05:53 Discharge Date: 12/02/18 Consults: 11/22/18 13:54 Consult to Anesthesiology Routine Comment: Consulting Provider: Anesthesiologist Reason for consultation: Surgeon requested re: Home 02 Consult to Pastoral Services Routine Comment: ANGELICA Rev 11/28/18 Consult to Respiratory Therapy Evaluate & Treat Comment: Physician Instructions: Evaluate and treat 11/28/18 06:33 Consult to Anesthesiology Routine Comment: Consulting Provider: Anesthesiologist Reason for consultation: Regional block for post operative pain control 11/28/18 12:35 Consult to Discharge Planning Routine Comment: Consult to Physical Therapy Evaluate & Treat Comment: Physician Instructions: post op ANGELICA protocol Consult to Respiratory Therapy Evaluate & Treat Comment: Physician Instructions: Evaluate and treat 11/28/18 12:47 Consult to Hospitalist Service Routine Comment: Consulting Provider: Guerita Farooq Reason for consultation: COPD Has provider been notified: Yes 11/28/18 14:18 Consult to Pastoral Services Routine Comment: pt request 11/28/18 21:54 Consult to General Surgery Routine Comment: Consulting Provider: Jess Villarreal Reason for consultation: Central line placement Has provider been notified: Yes Discharge provider: Betty Jones PA-C Summary Discharge Diagnosis: s/p left total hip arthroplasty COPD Pulmonary Hypertension Breast Cancer Chronic Hypoxia GERD Sleep apnea Hypomagnesemia Hospital Course: Xi was admitted for left total hip arthroplasty with Dr. Mccullough and she consented to procedure. Hospital course was remarkable for acute hypotension, secondary to adrenal crisis, not present on admission. She was followed closely by hospitalist team. They consulted Endocrinology and was instructed on titrating dosing of hydrocortisone. On discharge she was instructed to take 15 mg in the morning, and 10 mg at night. She will need a close follow up with Endocrinology in the next 1-2 weeks. She also had hypomagnesemia and received potassium and magnesium while in the hospital. Patient was ambulating with PT throughout her stay. ASA for VTE prophylaxis. She will need further recovery at SNF following surgery. Status at Discharge Functional status at discharge: uses cane/walker Exam Vital Signs (past 8 hours): - 12/02/18 01:42 12/02/18 03:25 12/02/18 06:41 Temperature 97.5 F L Pulse Rate 93 H 84 96 H Respiratory Rate 18 Blood Pressure 105/67 114/71 109/59 L Pulse Oximetry 95 100 97 12/02/18 07:44 12/02/18 08:12 12/02/18 08:22 Temperature 99.9 F H Pulse Rate 90 95 H 101 H Respiratory Rate 22 16 Blood Pressure 98/69 Pulse Oximetry 94 93 88 L 12/02/18 08:32 Temperature Pulse Rate Respiratory Rate Blood Pressure Pulse Oximetry 94 Oxygen Delivery Method Nasal Cannula Oxygen Flow Rate 4 Narrative Exam Narrative: Patient is sitting up in bed in no acute distress. She is alert and oriented x3. She is current utilizing O2 at 2 L. calves are soft, compressible, nontender bilaterally. SCDs and ASA for DVT prophylaxis. Sensation intact light touch throughout bilateral extremities. Objective Labs Result Diagrams: 12/01/18 05:30 12/02/18 05:22 Labs: Laboratory Results - last 24 hr 11/29/18 12/02/18 14:45 05:22 Sodium 138 Potassium 3.4 Chloride 101 Carbon Dioxide 29 BUN 20 H Creatinine 0.80 Estimated GFR > 60.0 BUN/Creatinine Ratio 25.0 H Glucose 90 Calcium 8.8 Magnesium 1.4 L ACTH 32 Discharge Plan Discharge Plan Patient Disposition: SNF Transfer to: [facility] Under care of provider: Facility MD Transportation: Facility vehicle Consult as needed: Dental, Hearing, Mental health, Podiatry and Vision I certify the postop hospital correction care is medically necessary on a continuing basis for any conditions for which he/ she received care during this hospitalization.: Yes The receiving facility has agreed to accept transfer and provide medical treatment.: Yes Discharge Med Rec/Prescriptions Prescriptions: New hydrocortisone [Cortef] 10 mg Tablet 10 mg PO 1700 Qty: 30 RF: 0 acetaminophen 325 mg Tablet 975 mg PO TID Qty: 60 RF: 0 aspirin 81 mg Tablet,Delayed Release (Dr/Ec) 81 mg PO BID Qty: 60 RF: 0 docusate sodium [DOK] 100 mg Capsule 100 mg PO BID Qty: 60 RF: 0 ipratropium-albuterol 0.5 mg-3 mg(2.5 mg base)/3 mL Solution For Nebulization 3 ml INH RTBID Qty: 10 RF: 0 polyethylene glycol 3350 17 gram Powder In Packet 17 gm PO DAILY PRN (Reason: Constipation) Qty: 30 RF: 0 bisacodyl 10 mg Suppository 10 mg VA DAILY PRN (Reason: Constipation) Qty: 30 RF: 0 pantoprazole 40 mg Tablet,Delayed Release (Dr/Ec) 40 mg PO 0700 Qty: 20 RF: 0 guaifenesin [Mucus Relief ER] 600 mg Tablet Extended Release 12hr 1,200 mg PO BID 3 Days Qty: 6 RF: 0 Symbicort 80-4.5 mcg/actuation HFA aerosol inhaler 2 puff INHALATION BID Qty: 6.9 RF: 0 hydrocortisone [Cortef] 10 mg tablet 15 mg PO DAILY Qty: 20 RF: 0 oxycodone 5 mg Tablet 5 mg PO Q4-6H PRN (Reason: Pain, Moderate (4-6)) Qty: 30 RF: 0 Continued potassium chloride 8 mEq Capsule, Extended Release 8 meq PO Q OTHER DAY RF: 0 omeprazole 40 mg Capsule,Delayed Release(Dr/Ec) 80 mg PO QAM RF: 0 albuterol sulfate 90 mcg/actuation Hfa Aerosol Inhaler 1 - 2 puff INHALATION Q4-6H PRN (Reason: COPD) RF: 0 sertraline 50 mg Tablet 50 mg PO DAILY RF: 0 naproxen sodium [Aleve] 220 mg Capsule 1 - 2 tab PO BID PRN (Reason: Pain) RF: 0 Breo Ellipta 200-25 mcg/dose Blister With Device 1 inh INHALATION DAILY RF: 0 Discontinued indapamide 2.5 mg Tablet 2.5 mg PO QAM RF: 0 lisinopril 20 mg Tablet 20 mg PO QAM RF: 0 Follow up/Referrals: Hamzah Stark [Other] - 2 Weeks (Primary Care Doctor) Cathryn Davis [Other] ([employer] Manager) Puneet Aaron MD [Non-Staff] - (Follow up with Endocrinology 1-2 weeks following surgery for management of adrenal crisis ) Catarina Mccullough MD [Physician] - Discharge Health Status Brief summary of current health status: Severe COPD/Asthma Recent adrenal crisis Precautions: [place] Provider Discharge Instructions Diet: Diet as Tolerated Liquid consistency: Normal/Thin Food texture: Regular Activity: Weight bear as tolerated. Posterior hip precautions. Cold/Heat Therapy: Ice packs as needed. Oxygen: yes, been on home O2 2L Skin/Wound/Dressing Care Report to your healthcare provider any signs of infection, such as:: chills, fever, night sweats, unusual drainage and unusual redness Dressing: Leave dressing in place. Aquacel dressing should be removed at 2 week post operative follow up. Please call the office if dressing becomes saturated. Special Rehabilitation Services Reason for rehabilitation: Post-operative therapy Rehab type: Physical therapy and Occupational therapy Visit Report/Discharge Packet Instructions: DI for Hip Replacement Discharge Data Attending Provider: Catarina Mccullough Admit Date/Time: 11/28/18 05:53 Quality VTE Deep Vein Thrombosis/Pulmonary Embolism Present on Admission: No
--- NOTE | 2018-12-02 10:23 | PT.IPTN ---
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) Surgery Performed Operation Date: 11/28/18 07:45 Actual Procedures p Total Hip Arthroplasty Revision(Left) - Catarina Mccullough MD Physical Therapy Treatment Note M2 PT-IP Current Condition Start: 11/28/18 13:55 Freq: NEEDED Status: Active Protocol: Document 11/29/18 12:30 AB (Rec: 11/29/18 14:42 AB [id number]) Physical Therapy Current Condition Current Condition Evaluation Date 11/29/18 Treatment Diagnosis s/p L ANGELICA posterior approach; difficulty in walking Onset Date 11/28/18 Precautions Posterior Hip Precautions No Hip Flexion > 90 degrees No Hip Internal Rotation No Hip Adduction Weight Bearing Status Weight Bearing Status Weight Bear as Tolerated M3 PT-IP Subjective Start: 11/28/18 13:55 Freq: NEEDED Status: Active Protocol: Document 12/02/18 09:38 LUDMILA (Rec: 12/02/18 10:23 LJ [email or web address]) Subjective Physical Therapy Visit Type Type Treatment Note Visit Start Time 09:38 Visit Stop Time 10:11 Total Visit Minutes 33 Notes Nursing in room taking BP Number of PERSONAL COACH Visits 1 Physical Therapy Visit Comments Patient Comments Pt in bed with family sitting in room. States hip is feeling ok, but very short of breath. M4 PT-IP Mobility and Gait Start: 11/28/18 13:55 Freq: NEEDED Status: Active Protocol: Document 12/02/18 09:38 LUDMILA (Rec: 12/02/18 10:23 LJ [email or web address]) PT-Bed Mobility Assessment Supine to Sit Supine to Sit Minimal Assistance 1 Person Assistance Bedrails Scooting Scooting to Edge of Bed Minimal Assistance PT-Transfer Assessment Sit to and From Stand Sit to and from Stand Contact Guard Assistance 1 Person Assistance Use of Upper Extremities Equipment Transfer Assistive Device Gait Belt Front Wheeled Walker Orthotic/Prosthetic Devices or Brace: No Transfers Transfer Destination Chair Transfer Technique Stand Step Pivot Transfer Ability Level of Assist Contact Guard Assistance 1 Person Assistance Comments Mobility Comments In bed BP 90/58. HR remained steady with activity. O2 in 90s at rest. Dropped to mid 80s with activity of moving from bed to chair~4 steps. Pt able to control descent and position self in chair. Gait Assessment Gait Gait Assistance Required: Contact Guard Assist 1 Person Assist Distance (Feet) 3 Able to Maintain Weight Bearing Status Yes During Gait Assistive Devices Assistive Device Gait Belt Front Wheeled Walker Gait Deviations General Gait Pattern Ataxic Decreased Feet Clearance Factors Limiting Gait Function Factors Limiting Gait Function Decreased Activity Tolerance Decreased Strength Limited Range of Motion Comments Gait Comments Pt stood 4 min at edge of bed before initiating transfer to chair. Pt performing PLB during transfer. Breathing effort improved with postural correction and sitting in chair. M5 PT-IP Objective Assessments Start: 11/28/18 13:55 Freq: NEEDED Status: Active Protocol: Document 11/29/18 12:30 AB (Rec: 11/29/18 14:42 AB [id number]) Orientation Orientation/Cognition Level of Alertness Alert Orientation Name Place Situation Language Function Ability Hard of Hearing Safety Awareness Decreased Safety Awareness Memory Description Short Term Impaired Strength Lower Extremity Strength Assessment Bilaterally Impaired Comments Strength Comments LLE: 3+/5 RLE 4-/5 Coordination Assessment Gross Coordination Gross Coordination WNL Sensation Assessment Sensation Gross Sensation WNL Muscle Tone Muscle Tone WNL Yes M6 PT-IP Treatment Start: 11/28/18 13:55 Freq: NEEDED Status: Active Protocol: Document 12/01/18 13:05 AMB (Rec: 12/01/18 15:51 AMB [email or web address]) Physical Therapy Treatment Education Education Provided Precautions Safety M7 PT-IP Assessment and Plan Start: 11/28/18 13:55 Freq: NEEDED Status: Active Protocol: Document 12/02/18 09:38 LJ (Rec: 12/02/18 10:23 LJ [email or web address]) PT Summary Assessment and Plan Summary Impairments Pain ROM Strength Balance Coordination Sensation Tone Cognition Bed Mobility Transfers Gait Activity Tolerance Assessment Summary Pt reports her hip pain is minimal but is still concerned with SOB. Took a standing rest break of 4 min then stepped toward chair where she stood for ~1min prior to sitting down. Left pt in chair with all needs and family in room. Goals Bed Mobility Goal Standby Assistance Transfer Goal Standby Assistance Front Wheeled Walker Gait Goal Standby Assistance Front Wheel Walker Gait Distance 150 Frequency of Treatment Frequency Of Treatment Twice a Day Treatment Plan Physical Therapy Treatment Plan Bed Mobility Training Transfer Training Gait Training Therapeutic Exercise Balance Retraining Post Op Education Discharge Planning Hot or Cold Pack Neuromuscular Re-ed Coordination Retraining Manual Therapy Recommendations To Nursing Amount of Assist Needed 1 Person Assist Discharge Recommendations PT Discharge Recommendations SNF Rehab
--- NOTE | 2018-12-02 10:29 | CM.DPC ---
DCP Discharge SNF Per Ortho PA and Hospitalist, pt seems stable this morning but due to her complex medical hx and needs d/c to happen this afternoon to allow for final confirmation that pt remains stable for d/c to SNF today. Ortho PA wrote tentative d/c orders and summary and MD's requesting d/c around 1400. EMILY called [facility] admissions November and updated on above information and November confirms they can accept the pt today and provide w/c transport around 1400. SW faxed pt PASRR, signed med rec, script, and d/c summary to [facility] to review. SW confirmed with RT that pt to remain on oxygen at d/c and SW reminded [facility] to bring oxygen tank for transport. SW met bedside with pt and spouse and explained role and they confirm that they are still agreeable with d/c to [facility] today as long as pt feels medically stable. SW discussed the w/c van transport and both very appreciative not to have to worry about transportation due to SOB. EMILY updated RN and will continue to follow to confirm pt stable for d/c to [facility] today. Plan: EMILY to follow for likely pt d/c to [facility] today around 1400 via w/c van before safe return home with spouse. Ariela Kathleen, MUSHROOM GROWING SUPERVISOR
--- NOTE | 2018-12-02 11:54 | PC.NURSE ---
Addendum entered by Laura Meléndez R.N. 12/02/18 13:38: REPORT GIVEN TO BLAYNE AT [facility]. INCLUDING LABILE BP READINGS AND NEED TO MONITOR FOR SYMPTOMS ASSOCIATED W/ HYPOTENSION. IF PRESENT, MD NEEDS TO BE NOTIFIED. DESCRIBED THE BELOW DOCUMENTATION AND DR. CASTRO EXPLANATIONS OF SAME TO BLAYNE. ALL QUESTIONS ANSWERED TO SATISFACTION. Addendum entered by Laura Meléndez R.N. 12/02/18 12:26: STATES SHE SPOKE WITH EMERGENCY MEDICINE SPECIALIST, PER DR. SULLIVAN, HE AGREES THAT THE BP'S ARE UNRELIABLE, BUT THAT IF PATIENT IS SYMPTOMATIC, THAT PRESSURES NEED TO BE LOOKED INTO FURTHER. Original Note: SHIFT SUMMARY: BP'S LABILE THIS AM. INITIAL READING 0818 67/37. HR 93 ON RIGHT ANKLE. 98/69 HR 95 TO RIGHT WRIST AT 0820. MD NOTIFIED, REQUESTED MANUAL BP WHICH WAS 90/58 AT 1010. PATIENT HAS BEEN ASYMPTOMATIC ALL SHIFT. 1122 BP R WRIST 63/47. HR 92, RECHECKED WITH SIMILAR RESULT. NOTIFIED. MD AT BEDSIDE FOR R WRIST PRESSURE AT 1139 70/51 HR 91 AND BP TO RIGHT ANKLE 102/61 HR 92. MD ACCEPTS THIS FINAL BP THE MOST ACCURATE, WITH RATIONALES EXPLAINED TO PATIENT, FAMILY AND NURSING. STATES SHE WILL CALL EMERGENCY MEDICINE SPECIALIST AGAIN TODAY, BUT THAT PATIENT IS CLEAR TO DC TO SNF THIS AFTERNOON. KRIDER INFUSING AND PICC LINE WILL BE DC'D AFTERWARDS.
--- NOTE | 2018-12-02 13:10 | CM.DPC ---
DCP Cont: Faxed updated med list and MD's most recent progress note to [facility], Attn: Brenda at fax # [phone]. Fax confirmation scanned in. Shadi Leiva [employer]
[2018-12-02 21:43] LABS: Aldosterone/Renin Activity Rat 4.8 Ratio (0.9-28.9)
== END 2018-12-02 14:11 | DRG 469 ==
LOC: AC 12:57 → ICU 22:46 → AC 11-30 15:28
PROVIDERS: Internal Medicine; Nurse Practitioner Family; Physician Assistant; Admitting Provider Orthopaedic Surgery; Visit Provider Orthopaedic Surgery
PROC: 0SRB02Z Replacement of Left Hip Joint with Metal on Polyethylene Synthetic Substitute, Open Approach (ICD-10-PCS; principal; 2018-11-28 07:45)
DX: S72.002K Fracture of unspecified part of neck of left femur, subsequent encounter for closed fracture with nonunion (principal); J81.0 Acute pulmonary edema; E27.2 Addisonian crisis; T84.89XA Other specified complication of internal orthopedic prosthetic devices, implants and grafts, initial encounter; J96.11 Chronic respiratory failure with hypoxia; J44.9 Chronic obstructive pulmonary disease, unspecified; J45.909 Unspecified asthma, uncomplicated; Z99.81 Dependence on supplemental oxygen; I95.81 Postprocedural hypotension; G47.33 Obstructive sleep apnea (adult) (pediatric); I27.20 Pulmonary hypertension, unspecified; R33.9 Retention of urine, unspecified; I10 Essential (primary) hypertension; Z87.891 Personal history of nicotine dependence; K21.9 Gastro-esophageal reflux disease without esophagitis; E83.42 Hypomagnesemia; E87.70 Fluid overload, unspecified; W18.30XD Fall on same level, unspecified, subsequent encounter
CPT/HCPCS: 36415; 36569; 36592; 71045; 72170; 73502; 80048; 80053; 81001; 82024; 82088; 82533; 83605; 83735; 84100; 84145; 84244; 84443; 85025; 87040; 87086; 87797; 93005; 93010; 94150; 94640; 94760; 94762; 97110; 97116; 97162; 97530; C1776; C9290; J0171; J0690; J0834; J1100; J1642; J1720; J1940; J2250; J2274; J2405; J2704; J3010; J3480